=== PATIENT | female | born 1985 | race Caucasian/White ===

== ENCOUNTER 2022-06-02 07:57 | Emergency (ER) | payer OTHER, SELFPAY ==
[2022-06-02 08:07] VITALS: BP 149/97; PULSE 68; RESP 14; TEMP 36.4; O2SAT 99
--- NOTE | 2022-06-02 08:29 | ED_ITS ---
HPI - General Adult General Chief complaint: General Medical Stated complaint: Neck pain/Head pain Time Seen by Provider: 06/02/22 08:15 Source: patient and spanish interpreter Mode of arrival: ambulatory Limitations: language barrier History of Present Illness HPI narrative: Patient is a 36 year old assigned female at with a history of cervical spine arthritis presenting to the emergency department today with neck pain. Patient states that she has had this neck pain for months and it spasms randomly. Patient states that she has only seen her PCP for it and she is on a muscle relaxer but it isn't helping. Patient denies any dizziness, lightheadedness, abdominal pain, nausea, vomiting, fever, chills, blurry vision, double vision, loss of vision, chest pain, difficulty breathing, shortness of breath, back pain, night sweats, pain with urination, increased urinary frequency, increased urinary urgency, blood in her urine or stool, syncope or a near syncopal episode, recent trauma or falls, bowel incontinence, bladder incontinence, bowel retention, bladder retention, or any other complaints at this time. Onset (ago): month(s) Location: neck Radiation: non-radiation Severity: mild Severity scale (1-10): 3 Quality: aching Pain Consistency: intermittent Relieving factors: none Exacerbating factors: none Associated symptoms: denies other symptoms Treatments prior to arrival: none Related Data Allergies Allergy/AdvReac Type Severity Reaction Status Date / Time No Known Allergies Allergy Verified 06/02/22 08:28 Review of Systems 2 Constitutional: Constitutional: Reports no additional constitutional complaints, Denies chills, Denies fever(s) and Denies night sweats Eyes: Eyes: Reports no additional eye complaints, Denies blurry vision, Denies change in vision, Denies diplopia, Denies eye discharge, Denies loss of vision and Denies eye pain ENT: Denies dizziness and Reports neck pain Cardiovascular: Cardiovascular: Reports no additional cardiovascular complaints, Denies chest pain, Denies lightheadedness, Denies Loss of Consciousness and Denies dyspnea Respiratory: Respiratory: Reports no additional respiratory complaints and Denies dyspnea Gastrointestinal: Gastrointestinal: Reports no additional gastrointestinal complaints, Denies abdominal pain, Denies melena, Denies hematochezia, Denies change in bowel habits and Denies change in stool character Genitourinary: Genitourinary: Denies hematuria, Denies urinary frequency, Denies dysuria, Denies urinary incontinence, Denies urinary hesitancy and Denies urinary urgency Musculoskeletal: Musculoskeletal: Reports no additional musculoskeletal complaints, Reports neck pain, Denies numbness and Denies tingling Neurologic: Denies dizziness, Denies loss of vision, Denies numbness and Denies tingling Psychiatric: Psychiatric: Reports no additional psychiatric complaints Endocrine: Endocrine: Reports no additional endocrine complaints Hematologic/Lymphatic: Hematologic/Lymphatic: Reports no additional hematologic/lymphatic complaints Allergic/Immunologic: Allergic/Immunologic: Reports no additional allergic/imm unologic complaints [facility] Past Medical History Attestation statement: The following information was validated with the patient. Source: old records reviewed and nursing notes reviewed Social History Social History Advance Directives: No Advance Directives Information Provided: No Physical Exam ED Vital Signs: Vital Signs - 24 hr 06/02/22 08:07 06/02/22 08:39 Temperature 97.5 F 97.6 F Pulse Rate 68 58 Respiratory Rate 14 20 Blood Pressure 149/97 H 144/86 H Pulse Oximetry 99 99 Oxygen Delivery Method Room Air Room Air BMI result Body Mass Index 21.9 Const General: cooperative, no acute distress, alert and awake Nutritional Appearance: well nourished Orientation/consciousness: patient oriented x3 Limitations: no limitations HENMT Head: Yes normal to inspection and Yes atraumatic Ears: hearing grossly normal bilaterally and external ears normal General nose exam: Normal external nose present, no nasal discharge noted and no epistaxis Face and sinus: Yes normal facial exam, No abrasion and No laceration Mouth: Normal oral and palatal mucosa present, no drooling and no muffled voice Eyes General: appearance normal, both eyes and all related structures Periorbital: periorbital findings normal Eyelids: Yes eyelids normal Conjunctivae: conjunctivae normal Pupils: Equal, round and reactive pupils present EOM: EOMs intact bilaterally Neck Neck: Yes normal visual inspection, Yes full ROM and Yes no lymphadenopathy Chest Chest palpation & inspection: normal inspection of the chest Resp Effort & Inspection: normal respiratory effort and able to speak in complete sentences Auscultation: clear to auscultation bilaterally Cardio Rate: regular rate Rhythm: regular rhythm GI Inspection: Yes normal to inspection General: Yes no CVA tenderness Back/Spine/Pelvis Back: no CVA tenderness Cervical Spine: normal cervical lordosis and cervical ROM normal Thoracic/Lumbar Spine: thoracic and lumbar spine normal to inspection and thoraco-lumbar ROM normal Pelvis: no pain with anterior-posterior compression Neuro General: patient oriented x3 and moves all extremities Cranial nerves: Yes Equal, round and reactive pupils present Cognition (Neuro): normal cognition Motor exam (neuro): 5/5 motor strength present throughout Sensory Exam: Normal double simultaneous stimulation for sensation Coordination: [id number] test normal Extrem General: Yes normal to inspection, Yes full ROM and Yes capillary refill normal Psych Appearance: grossly normal Mental Status: mental status grossly normal Affect: normal affect Attitude: cooperative Thought process: Normal thought process present Thought content: Normal thought content present Insight: Good insight present (Psych) Medications Administered Discontinued Medications Generic Name Dose Route Start Last Admin Trade Name Freq PRN Reason Stop Dose Admin Lorazepam 2 mg 06/02/22 08:28 06/02/22 08:31 Lorazepam 1 Mg Tablet PO 06/02/22 08:29 2 mg ONCE ONE Administration Medical Decision Making Medical Decision Making [facility] Narrative: Patient is a 36 year old assigned female at with a history of chronic cervical spine pain presenting to the emergency department today with neck pain. Patient's physical exam was unremarkable. Patient's blood work was unremarkable. I explained my physical exam findings as well as all test results to the patient. I answered all questions asked by the patient. Patient received PO Ativan which she stated helped her symptoms significantly. I stressed the importance of the patient taking her medication as prescribed. I stressed the importance of the patient following up with her primary care provider and a user support specialist. I stressed the importance of the patient returning to the emergency department immediately if her symptoms were to worsen or if she were to develop any dizziness, shortness of breath, difficulty breathing, chest pain, blurry vision, loss of vision, nausea, vomiting, abdominal pain, fever, chills, back pain, or any other complaints. Patient verbalized agreement and understanding with this treatment plan and discharge. Differential Diagnosis Differential Diagnoses: The differential diagnosis associated with the presentation includes chronic neck pain, muscle spasm Lab Data MDM Lab Attestation statement: I reviewed the patient's lab results. 06/02/22 08:49 06/02/22 08:49 Labs: Lab Results 06/02/22 06/02/22 06/02/22 Range/Units 08:49 08:49 08:49 WBC 7.7 (4.8-10.8) X10*3/uL RBC 3.95 L (4.20-5.50) X10*6/uL Hgb 9.8 L (12.0-16.0) g/dl Hct 31.6 L (37.0-47.0) % MCV 80.0 (80.0-98.0) fL MCH 24.8 L (27.0-33.0) pg MCHC 31.0 (31.0-35.0) g/dl RDW 15.2 (11.0-16.0) % Plt Count 359 (160-400) X10*3/uL MPV 10.4 (9.4-12.3) fL Immature Gran % (Auto) 0.3 (0.0-0.4) % Neut % (Auto) 52.8 (45-73) % Lymph % (Auto) 35.4 (20-40) % Humphreys % (Auto) 8.4 (2-11) % Eos % (Auto) 2.5 (0-4) % Baso % (Auto) 0.6 (0-2) % Lymph # (Auto) 2.7 (1.2-4.9) X10*3/uL Humphreys # (Auto) 0.7 (0.1-1.2) X10*3/uL Eos # (Auto) 0.2 (0.0-0.4) X10*3/uL Baso # (Auto) 0.1 (0.0-0.2) X10*3/uL Abs Immat Gran (auto) 0.02 (0.00-0.03) X10*3/uL Absolute Neuts (auto) 4.1 (2.0-8.3) x10*3/uL Absolute Nucleated RBC 0.000 (0.0-0.012) X10*3/uL Nucleated RBC % (auto) 0.0 (0.0-0.2) /100WBC Sodium 139 (135-145) mmol/L Potassium 3.8 (3.3-5.1) mmol/L Chloride 109 H (96-108) mmol/L Carbon Dioxide 24 (22-29) mmol/L Anion Gap 10 L (12-20) BUN 9 (9-16) mg/dL Creatinine 0.71 (0.5-1.4) mg/dL Estim Creat Clear Calc 104.5 Estimated GFR > 60 Random Glucose 93 (60-115) mg/dL Calcium 8.4 (8.4-10.2) mg/dL Magnesium 1.8 (1.6-2.6) mg/dL Total Bilirubin 0.2 (0.0-1.0) mg/dL AST 14 (5-31) U/L ALT 13 (0-31) U/L Alkaline Phosphatase 47 (39-117) U/L Troponin I High Sens < 3.5 (<3.5-17.0) ng/L Total Protein 5.9 L (6.5-8.0) g/dL Albumin 3.7 (3.5-5.0) g/dL Influenza Type A (PCR) (Negative) Influenza Type B (PCR) (Negative) RSV RNA Qual (PCR) (Negative) SARS-CoV-2 RNA (RT-PCR) (Negative) 06/02/22 Range/Units 08:49 WBC (4.8-10.8) X10*3/uL RBC (4.20-5.50) X10*6/uL Hgb (12.0-16.0) g/dl Hct (37.0-47.0) % MCV (80.0-98.0) fL MCH (27.0-33.0) pg MCHC (31.0-35.0) g/dl RDW (11.0-16.0) % Plt Count (160-400) X10*3/uL MPV (9.4-12.3) fL Immature Gran % (Auto) (0.0-0.4) % Neut % (Auto) (45-73) % Lymph % (Auto) (20-40) % Humphreys % (Auto) (2-11) % Eos % (Auto) (0-4) % Baso % (Auto) (0-2) % Lymph # (Auto) (1.2-4.9) X10*3/uL Humphreys # (Auto) (0.1-1.2) X10*3/uL Eos # (Auto) (0.0-0.4) X10*3/uL Baso # (Auto) (0.0-0.2) X10*3/uL Abs Immat Gran (auto) (0.00-0.03) X10*3/uL Absolute Neuts (auto) (2.0-8.3) x10*3/uL Absolute Nucleated RBC (0.0-0.012) X10*3/uL Nucleated RBC % (auto) (0.0-0.2) /100WBC Sodium (135-145) mmol/L Potassium (3.3-5.1) mmol/L Chloride (96-108) mmol/L Carbon Dioxide (22-29) mmol/L Anion Gap (12-20) BUN (9-16) mg/dL Creatinine (0.5-1.4) mg/dL Estim Creat Clear Calc Estimated GFR Random Glucose (60-115) mg/dL Calcium (8.4-10.2) mg/dL Magnesium (1.6-2.6) mg/dL Total Bilirubin (0.0-1.0) mg/dL AST (5-31) U/L ALT (0-31) U/L Alkaline Phosphatase (39-117) U/L Troponin I High Sens (<3.5-17.0) ng/L Total Protein (6.5-8.0) g/dL Albumin (3.5-5.0) g/dL Influenza Type A (PCR) NEGATIVE (Negative) Influenza Type B (PCR) NEGATIVE (Negative) RSV RNA Qual (PCR) NEGATIVE (Negative) SARS-CoV-2 RNA (RT-PCR) NEGATIVE (Negative) Discharge Plan Discharge Clinical Impression: Neck pain Patient Disposition: Home, Self-Care Instructions: Chronic Neck Pain (DC) Additional Instructions: Follow up with your primary care provider and a user support specialist. Return to the emergency department immediately if your symptoms worsen or if you develop any dizziness, shortness of breath, difficulty breathing, chest pain, blurry vision, loss of vision, nausea, vomiting, abdominal pain, fever, chills, back pain, or any other complaints. Corey un seguimiento con cabezas proveedor de atenci?n primaria y un especialista en columna vertebral. Regrese a la job de emergencias de inmediato si brandt s?ntomas empeoran o si presenta mareos, dificultad para respirar, dolor de pecho, visi?n borrosa, p?rdida de la visi?n, n?useas, v?mitos, dolor abdominal, fiebre, escalofr?os, dolor de espalda o cualquier otras quejas. Referrals: [facility] [Provider Group] (Call to establish and follow up with a primary care provider. If you already have a primary care provider, please follow up with them. Llame para establecer y hacer un seguimiento con un proveedor de atenci?n primaria. Si ya tiene un proveedor de atenci?n primaria, corey un seguimiento con ?l.) [facility] [Provider Group] (Call to establish and follow up with a primary care provider. If you already have a primary care provider, please follow up with them. Llame para establecer y hacer un seguimiento con un proveedor de atenci?n primaria. Si ya tiene un proveedor de atenci?n primaria, corey un seguimiento con ?l.) [facility] [Provider Group] (Call to establish and follow up with a primary care provider. If you already have a primary care provider, please follow up with them. Llame para establecer y hacer un seguimiento con un proveedor de atenci?n primaria. Si ya tiene un proveedor de atenci?n primaria, corey un seguimiento con ?l.) [facility] [Provider Group] (Call to establish and follow up with a user support specialist. Llame para establecer y hacer un seguimiento con woody especialista en columna vertebral.) Stand Alone Forms: Work/School Release Interventions: ED Discharge Assessment Last Done: 06/02/22 10:35 Discharge Date/Time: 06/02/22 10:36 Print Language: Malay
[2022-06-02] MEDS: LORazepam 1 MG TABLET 2 MG PO (08:31)
[2022-06-02 08:33] VITALS: BMI 21.9
--- NOTE | 2022-06-02 08:37 | PC.NURSE ---
assumed care of patient, 36 y/o F pw back pain unrelieved by home rx. pt is aox3, calm and cooperative, VSS. pt given 2mg PO ativan for relief, plan for labs and d/c home with spine referral
[2022-06-02 08:39] VITALS: BP 144/86; PULSE 58; RESP 20; TEMP 36.4; O2SAT 99
--- OUTSIDE RECORDS SUMMARY | 2022-06-02 08:40 | XMS_ITS | Continuity of Care Document ---
:1985 Author Organization [facility] Address Unavailable , Care Team Providers Name Role Phone Not on Staff, PCP Primary Care Physician Unavailable Encounter [facility] Date(s): 08/25/21 - 09/01/21 [facility] Attending Physician: Anirudh JONES, [address] Referring Physician: Rosalinda Arnold Allergies, Adverse Reactions, Alerts Substance Reaction Severity Status penicillins Active Medications cyclobenzaprine 10 mg oral tablet 10 mg, 1, tablet, By Mouth, 3 times a day, PRN, # 30 tablet, Refills 0, Maintenance, for spasm, 08/25/21 13:20:00 EDT, Partial fill upon patient request if the prescription is for a schedule II opioid drug. Start Date: 08/25/21 Status: Orderedmeloxicam 7.5 mg oral tablet 1 tablet = 7.5 mg, By Mouth, Daily, # 30 tablet, 2 Refills, Maintenance, 08/25/21 14:15:00 EDT, [id number], Partial fill upon patient request if the prescription is for a schedule II opioid drug., 163, cm, 08/25/21 13:16:00 EDT, Height Start Date: 08/25/21 Stop Date: 11/23/21 Status: Ordered Problem List Condition Effective Dates Status Health Status Informant Obese class I(Confirmed) Active Vital Signs Most recent to oldest [Reference Range]: 1 Height 163 cm (08/25/21 1:16 PM) Weight 84.9 kg (08/25/21 1:16 PM) Pulse Rate [55-90 bpm] 71 bpm (08/25/21 1:16 PM) Body Mass Index [18.5-24.99] 31.95 *>HHI* (08/25/21 1:16 PM) Blood Pressure [90-138/55-84 mm Hg] 134/91 mm Hg (08/25/21 1:16 PM) Blood pressure sites Arm, right (08/25/21 1:16 PM) Social History Social History Type Response Sex Female
--- OUTSIDE RECORDS SUMMARY | 2022-06-02 08:40 | XMS_ITS | Continuity of Care Document ---
:1985 Author Organization [facility] Address Unavailable , Care Team Providers Name Role Phone Not on Staff, PCP Primary Care Physician Unavailable Encounter [facility] Date(s): 12/08/21 - 12/15/21 [facility] Attending Physician: Anirudh JONES, [address] Referring Physician: Not on Staff, Referring MD Allergies, Adverse Reactions, Alerts Substance Reaction Severity Status penicillins Active Medications cyclobenzaprine 10 mg oral tablet 10 mg, 1, tablet, By Mouth, 3 times a day, PRN, # 30 tablet, Refills 0, Maintenance, for spasm, 08/25/21 13:20:00 EDT, Partial fill upon patient request if the prescription is for a schedule II opioid drug. Start Date: 08/25/21 Status: Orderedmeloxicam 7.5 mg oral tablet 2 tablet = 15 mg, By Mouth, Daily, # 60 tablet, 2 Refills, Maintenance, 08/25/21 14:15:00 EDT, [id number], Partial fill upon patient request if the prescription is for a schedule II opioid drug., 163, cm, 08/25/21 13:16:00 EDT, Height Start Date: 08/25/21 Stop Date: 11/23/21 Status: Ordered Problem List Condition Effective Dates Status Health Status Informant Obese class I(Confirmed) Active Vital Signs Most recent to oldest [Reference Range]: 1 Height 163 cm (12/08/21 12:51 PM) Weight 86.4 kg (12/08/21 12:51 PM) Oxygen Saturation [94-100 %] 98 % (12/08/21 12:51 PM) Pulse Rate [55-90 bpm] 89 bpm (12/08/21 12:51 PM) Body Mass Index [18.5-24.99] 32.52 *>HHI* (12/08/21 12:51 PM) Blood Pressure [90-138/55-84 mm Hg] 116/86 mm Hg (12/08/21 12:51 PM) Mode of Delivery (Oxygen) Room air (12/08/21 12:51 PM) Blood pressure sites Arm, left (12/08/21 12:51 PM) Dry Weight 86.4 kg (12/08/21 12:51 PM) Social History Social History Type Response Sex Female
--- OUTSIDE RECORDS SUMMARY | 2022-06-02 08:41 | XMS_ITS | Continuity of Care Document ---
:1985 Author Organization [facility] Address Unavailable , Care Team Providers Name Role Phone Not on Staff, PCP Primary Care Physician Unavailable Encounter [facility] [place] Date(s): 12/08/21 - 01/07/22 [facility] Attending Physician: Eva Rivera Admitting Physician: Eva Rivera Referring Physician: Eva Rivera Allergies, Adverse Reactions, Alerts Substance Reaction Severity [...] tablet, 2 Refills, Maintenance, 08/25/21 14:15:00 EDT, [id number], Partial fill upon patient request if the prescription is for a schedule II opioid drug., 163, cm, 08/25/21 13:16:00 EDT, Height Start Date: 08/25/21 Stop Date: 11/23/21 Status: Ordered Problem List Condition Effective Dates Status Health Status Informant Obese class I(Confirmed) Active Social History Social History Type Response Sex Female
[2022-06-02 08:59] LABS: MANUAL DIFF FLAG NO
[2022-06-02 09:08] LABS: Basophils Absolute Auto 0.1 X10*3/uL (0.0-0.2); Basophils Percent Auto 0.6 % (0-2); Eosinophils Absolute Auto 0.2 X10*3/uL (0.0-0.4); Eosinophils Percent Auto 2.5 % (0-4); Hematocrit 31.6 % (37.0-47.0); Hemoglobin 9.8 g/dl (12.0-16.0); Imm Gran Abs Auto 0.02 X10*3/uL (0.00-0.03); Imm Gran Pct Auto 0.3 % (0.0-0.4); Lymphocytes Absolute Auto 2.7 X10*3/uL (1.2-4.9); Lymphocytes Percent Auto 35.4 % (20-40); Mean Corpuscular Hemoglobin 24.8 pg (27.0-33.0); Mean Platelet Volume 10.4 fL (9.4-12.3); Monocytes Absolute Auto 0.7 X10*3/uL (0.1-1.2); Monocytes Percent Auto 8.4 % (2-11); Neutrophils Absolute Auto 4.1 x10*3/uL (2.0-8.3); Neutrophils Percent Auto 52.8 % (45-73); Platelet Count 359 X10*3/uL (160-400); Red Blood Count 3.95 X10*6/uL (4.20-5.50); Red Cell Distribution Width 15.2 % (11.0-16.0); White Blood Count 7.7 X10*3/uL (4.8-10.8)
[2022-06-02 09:15] LABS: Alanine Aminotransferase 13 U/L (0-31); Albumin Level 3.7 g/dL (3.5-5.0); Alkaline Phosphatase 47 U/L (39-117); Anion Gap 10 (12-20); Aspartate Amino Transferase 14 U/L (5-31); Bilirubin Total 0.2 mg/dL (0.0-1.0); Blood Urea Nitrogen 9 mg/dL (9-16); Calcium 8.4 mg/dL (8.4-10.2); Carbon Dioxide 24 mmol/L (22-29); Chloride 109 mmol/L (96-108); Creatinine Clr Calc Pharmacy 104.5; Estimated Glomerular Filt Rate > 60; Glucose Random 93 mg/dL (60-115); Magnesium 1.8 mg/dL (1.6-2.6); Potassium 3.8 mmol/L (3.3-5.1); Sodium 139 mmol/L (135-145); Total Protein 5.9 g/dL (6.5-8.0)
[2022-06-02 09:23] LABS: Troponin-I High Sensitivity < 3.5 ng/L (<3.5-17.0)
[2022-06-02 09:42] LABS: Influenza A PCR NEGATIVE (Negative); Influenza B PCR NEGATIVE (Negative); Resp Syncy Virus RNA Qual PCR NEGATIVE (Negative); SARS COV2 PCR INHOUSE NEGATIVE (Negative)
== END 2022-06-02 10:36 | disposition home or self-care (01) ==
PROVIDERS: Physician Assistant Medical; Emergency Provider Student in an Organized Health Care Education/Training Program
DX: M54.2 Cervicalgia (principal); Z20.822 Contact with and (suspected) exposure to COVID-19; Z20.828 Contact with and (suspected) exposure to other viral communicable diseases
CPT/HCPCS: 0241U; 80053; 83735; 84484; 85025; 99283; 99284

== ENCOUNTER 2022-06-05 20:19 | Emergency (ER) | payer OTHER, SELFPAY ==
[2022-06-05 20:33] VITALS: BP 146/86; PULSE 66; RESP 18; TEMP 36.4; O2SAT 100; BMI 31.7
--- NOTE | 2022-06-05 20:39 | ED_ITS ---
HPI - Headache General Chief Complaint: General Medical Stated Complaint: neck pain, vommiting Time Seen by Provider: 06/05/22 22:30 Related Data Previous Rx's Medication Instructions Recorded cyclobenzaprine 10 mg tablet 10 mg PO TID PRN pain #14 tabs 06/06/22 ibuprofen 400 mg tablet 400 mg PO Q6H PRN pain #20 tabs 06/06/22 Allergies Allergy/AdvReac Type Severity Reaction Status Date / Time Penicillins [PCN] AdvReac Anaphylaxis Verified 06/05/22 20:42 [facility] Social History Social History Smoked in Last 30 Days: No Use of substances other than those prescribed or required for medical reasons: No Advance Directives: No Advance Directives Information Provided: No Patient : No Physical Exam Vital Signs: Vital Signs: Last Vital Signs Temp 98.5 F 06/06/22 01:51 Pulse 77 06/06/22 01:51 Resp 20 06/06/22 01:51 BP 147/95 H 06/06/22 01:51 Pulse Ox 100 06/06/22 01:51 O2 Del Method 06/06/22 01:51 BMI result Body Mass Index 31.7 Course Course Course Narrative: This is a rapid medical exam. Defer additional HPI, ROS, PE to primary provider. 36 yo female with history of chronic cervical spine pain, migraine, here with acute on chronic neck pain and spasms with headache and vomiting. Patient seen here on June 02 for chronic neck pain. Vital signs stable Medications Administered Discontinued Medications Generic Name Dose Route Start Last Admin Trade Name Freq PRN Reason Stop Dose Admin Diphenhydramine HCl 25 mg 06/06/22 01:12 06/06/22 01:31 Diphenhydramine Hcl 50 Mg/Ml Vial IVPUSH 06/06/22 01:13 25 mg ONCE ONE Administration Ketorolac Tromethamine 30 mg 06/06/22 01:12 06/06/22 01:31 Ketorolac Tromethamine 30 Mg/Ml Vial IVPUSH 06/06/22 01:13 30 mg ONCE ONE Administration Lorazepam 0.5 mg 06/06/22 01:12 06/06/22 01:31 Lorazepam 2 Mg/Ml Vial IVPUSH 06/06/22 01:13 0.5 mg ONCE ONE Administration Metoclopramide HCl 10 mg 06/06/22 01:12 06/06/22 01:31 Metoclopramide Hcl 10 Mg/2 Ml Vial IVPUSH 06/06/22 01:13 10 mg ONCE ONE Administration Medical Decision Making Lab Data 06/06/22 02:12 06/06/22 02:12 Labs: Lab Results 06/06/22 06/06/22 06/06/22 Range/Units 02:12 02:12 02:12 WBC 9.1 (4.8-10.8) X10*3/uL RBC 4.33 (4.20-5.50) X10*6/uL Hgb 10.6 L (12.0-16.0) g/dl Hct 34.2 L (37.0-47.0) % MCV 79.0 L (80.0-98.0) fL MCH 24.5 L (27.0-33.0) pg MCHC 31.0 (31.0-35.0) g/dl RDW 15.0 (11.0-16.0) % Plt Count 396 (160-400) X10*3/uL MPV 10.1 (9.4-12.3) fL Immature Gran % (Auto) 0.1 (0.0-0.4) % Neut % (Auto) 49.6 (45-73) % Lymph % (Auto) 39.5 (20-40) % Guthrie % (Auto) 7.7 (2-11) % Eos % (Auto) 2.3 (0-4) % Baso % (Auto) 0.8 (0-2) % Lymph # (Auto) 3.6 (1.2-4.9) X10*3/uL Guthrie # (Auto) 0.7 (0.1-1.2) X10*3/uL Eos # (Auto) 0.2 (0.0-0.4) X10*3/uL Baso # (Auto) 0.1 (0.0-0.2) X10*3/uL Abs Immat Gran (auto) 0.01 (0.00-0.03) X10*3/uL Absolute Neuts (auto) 4.5 (2.0-8.3) x10*3/uL Absolute Nucleated RBC 0.000 (0.0-0.012) X10*3/uL Nucleated RBC % (auto) 0.0 (0.0-0.2) /100WBC Sodium 141 (135-145) mmol/L Potassium 3.6 (3.3-5.1) mmol/L Chloride 109 H (96-108) mmol/L Carbon Dioxide 22 (22-29) mmol/L Anion Gap 14 (12-20) BUN 10 (9-16) mg/dL Creatinine 0.76 (0.5-1.4) mg/dL Estim Creat Clear Calc 105.1 Estimated GFR > 60 Random Glucose 87 (60-115) mg/dL Calcium 8.6 (8.4-10.2) mg/dL Beta HCG, Quant < 2 mIU/mL Discharge Plan Discharge Clinical Impression: Migraine, Torticollis Patient Disposition: Home, Self-Care Instructions: Migraine Headache (ED), Spasmodic Torticollis (ED) Prescriptions: New cyclobenzaprine 10 mg tablet 10 mg PO TID PRN (Reason: pain) Qty: 14 0RF ibuprofen 400 mg tablet 400 mg PO Q6H PRN (Reason: pain) Qty: 20 0RF Referrals: Physician,None [Primary Care Provider] - Interventions: ED Discharge Assessment Last Done: 06/06/22 04:06 Discharge Date/Time: 06/06/22 04:06 Print Language: Palauan
[2022-06-05 22:56] VITALS: BP 133/81; PULSE 56; RESP 20; TEMP 36.8; O2SAT 96
--- NOTE | 2022-06-05 23:00 | PC.NURSE ---
Pt's V/S are stable, pt has pain 10/10 on her posterior neck pain stabbing, the necck feels rigid and not able to laterally flex the neck without feeling pain.
--- NOTE | 2022-06-06 01:13 | ED.GENADULT ---
HPI - General Adult General Chief complaint: General Medical Stated complaint: neck pain, vommiting Time Seen by Provider: 06/05/22 22:30 History of Present Illness HPI narrative: Patient is a 36-year-old female presents today with having neck pain headaches. Patient had a history of migraine headaches before. Complaining of pain to both eyes. Complaining of pain to noise and to light. Also complaining of neck pain that is similar to previous bouts of muscle spasms in the past. No fever no chills. No nuchal rigidity. Patient from home. No focal weakness. History of similar symptoms in the past. Symptoms been ongoing for about 4 days. Related Data Previous Rx's Medication Instructions Recorded cyclobenzaprine 10 mg tablet 10 mg PO TID PRN pain #14 tabs 06/06/22 ibuprofen 400 mg tablet 400 mg PO Q6H PRN pain #20 tabs 06/06/22 Allergies Allergy/AdvReac Type Severity Reaction Status Date / Time Penicillins [PCN] AdvReac Anaphylaxis Verified 06/05/22 20:42 Review of Systems Review of Systems: Positive neck pain Positive headache Yes all other systems are reviewed and are negative [facility] Past Medical History Attestation statement: The following information was validated with the patient. Social History Social History Smoked in Last 30 Days: No Use of substances other than those prescribed or required for medical reasons: No Advance Directives: No Advance Directives Information Provided: No Patient : No Physical Exam ED Vital Signs: Vital Signs - 24 hr 06/05/22 20:33 06/05/22 22:56 06/06/22 01:51 Temperature 97.6 F 98.2 F 98.5 F Pulse Rate 66 56 77 Respiratory Rate 18 20 20 Blood Pressure 146/86 H 133/81 147/95 H Pulse Oximetry 100 96 100 Oxygen Delivery Method Room Air Room Air Room Air BMI result Body Mass Index 31.7 Appearance: Alert. Oriented X3. No acute distress. Eyes: Pupils equal, round and reactive to light. ENT: Pharynx normal. Neck: Normal inspection. Neck supple. No lymph nodes noted. No crepitus CVS: Normal heart rate and rhythm. Pulses normal. Normal S1 and S2 Respiratory: No respiratory distress. Breath sounds normal. No Wheezing. No rales Abdomen: Soft and nontender. No rigidity. No distention. good BS x4 Skin: Skin warm and dry. Normal skin color. Normal skin turgor. Extremities: No lower extremity edema. Neurovascular intact to all extremities. No Lacerations. No Rash Neuro: Oriented X 3. No motor deficit. No sensory deficit. Moving all extermities. No slurred speech. Cranial nerve 2-12 intact. Rapid alternating movement intact Medications Administered Discontinued Medications Generic Name Dose Route Start Last Admin Trade Name [place] PRN Reason Stop Dose Admin Diphenhydramine HCl 25 mg 06/06/22 01:12 06/06/22 01:31 Diphenhydramine Hcl 50 Mg/Ml Vial IVPUSH 06/06/22 01:13 25 mg ONCE ONE Administration Ketorolac Tromethamine 30 mg 06/06/22 01:12 06/06/22 01:31 Ketorolac Tromethamine 30 Mg/Ml Vial IVPUSH 06/06/22 01:13 30 mg ONCE ONE Administration Lorazepam 0.5 mg 06/06/22 01:12 06/06/22 01:31 Lorazepam 2 Mg/Ml Vial IVPUSH 06/06/22 01:13 0.5 mg ONCE ONE Administration Metoclopramide HCl 10 mg 06/06/22 01:12 06/06/22 01:31 Metoclopramide Hcl 10 Mg/2 Ml Vial IVPUSH 06/06/22 01:13 10 mg ONCE ONE Administration Medical Decision Making Differential Diagnosis Patient's symptoms consistent with torticollis and migraine headache. Will give migraine treatment. History of similar headaches in the past. No fever no chills. Symptoms ongoing for 4 days. Not consistent with meningitis. Patient's symptom improved dramatically with migraine treatments. Muscle relaxants. In no distress. No meningeal sign well-appearing neurologically intact. Will discharge patient home. Electrolytes are normal test is negative. Lab Data MDM Lab Attestation statement: I reviewed the patient's lab results. 06/06/22 02:12 06/06/22 02:12 Labs: Lab Results 06/06/22 06/06/22 06/06/22 Range/Units 02:12 02:12 02:12 WBC 9.1 (4.8-10.8) X10*3/uL RBC 4.33 (4.20-5.50) X10*6/uL Hgb 10.6 L (12.0-16.0) g/dl Hct 34.2 L (37.0-47.0) % MCV 79.0 L (80.0-98.0) fL MCH 24.5 L (27.0-33.0) pg MCHC 31.0 (31.0-35.0) g/dl RDW 15.0 (11.0-16.0) % Plt Count 396 (160-400) X10*3/uL MPV 10.1 (9.4-12.3) fL Immature Gran % (Auto) 0.1 (0.0-0.4) % Neut % (Auto) 49.6 (45-73) % Lymph % (Auto) 39.5 (20-40) % [place] % (Auto) 7.7 (2-11) % Eos % (Auto) 2.3 (0-4) % Baso % (Auto) 0.8 (0-2) % Lymph # (Auto) 3.6 (1.2-4.9) X10*3/uL [place] # (Auto) 0.7 (0.1-1.2) X10*3/uL Eos # (Auto) 0.2 (0.0-0.4) X10*3/uL Baso # (Auto) 0.1 (0.0-0.2) X10*3/uL Abs Immat Gran (auto) 0.01 (0.00-0.03) X10*3/uL Absolute Neuts (auto) 4.5 (2.0-8.3) x10*3/uL Absolute Nucleated RBC 0.000 (0.0-0.012) X10*3/uL Nucleated RBC % (auto) 0.0 (0.0-0.2) /100WBC Sodium 141 (135-145) mmol/L Potassium 3.6 (3.3-5.1) mmol/L Chloride 109 H (96-108) mmol/L Carbon Dioxide 22 (22-29) mmol/L Anion Gap 14 (12-20) BUN 10 (9-16) mg/dL Creatinine 0.76 (0.5-1.4) mg/dL Estim Creat Clear Calc 105.1 Estimated GFR > 60 Random Glucose 87 (60-115) mg/dL Calcium 8.6 (8.4-10.2) mg/dL Beta HCG, Quant < 2 mIU/mL Prescription Management I considered prescription management with: Pain Medication and Other Muscle relaxant Discharge Plan Discharge Clinical Impression: Migraine, Torticollis Patient Disposition: Home, Self-Care Instructions: Migraine Headache (ED), Spasmodic Torticollis (ED) Prescriptions: New cyclobenzaprine 10 mg tablet 10 mg PO TID PRN (Reason: pain) Qty: 14 0RF ibuprofen 400 mg tablet 400 mg PO Q6H PRN (Reason: pain) Qty: 20 0RF Referrals: Physician,None [Primary Care Provider] - Print Language: Montenegrin
[2022-06-06] MEDS: Ketorolac Tromethamine 30 MG/ML VIAL IVPUSH (01:31)
[2022-06-06] MEDS: diphenhydrAMINE HCL 50 MG/ML VIAL 25 MG IVPUSH (01:31)
[2022-06-06] MEDS: Metoclopramide HCl 10 MG/2 ML VIAL IVPUSH (01:31)
[2022-06-06] MEDS: LORazepam 2 MG/ML VIAL 0.5 MG IVPUSH (01:31)
[2022-06-06 01:51] VITALS: BP 147/95; PULSE 77; RESP 20; TEMP 36.9; O2SAT 100
[2022-06-06 02:19] LABS: MANUAL DIFF FLAG NO
[2022-06-06 02:23] LABS: Basophils Absolute Auto 0.1 X10*3/uL (0.0-0.2); Basophils Percent Auto 0.8 % (0-2); Eosinophils Absolute Auto 0.2 X10*3/uL (0.0-0.4); Eosinophils Percent Auto 2.3 % (0-4); Hematocrit 34.2 % (37.0-47.0); Hemoglobin 10.6 g/dl (12.0-16.0); Imm Gran Abs Auto 0.01 X10*3/uL (0.00-0.03); Imm Gran Pct Auto 0.1 % (0.0-0.4); Lymphocytes Absolute Auto 3.6 X10*3/uL (1.2-4.9); Lymphocytes Percent Auto 39.5 % (20-40); Mean Corpuscular Hemoglobin 24.5 pg (27.0-33.0); Mean Platelet Volume 10.1 fL (9.4-12.3); Monocytes Absolute Auto 0.7 X10*3/uL (0.1-1.2); Monocytes Percent Auto 7.7 % (2-11); Neutrophils Absolute Auto 4.5 x10*3/uL (2.0-8.3); Neutrophils Percent Auto 49.6 % (45-73); Platelet Count 396 X10*3/uL (160-400); Red Blood Count 4.33 X10*6/uL (4.20-5.50); White Blood Count 9.1 X10*3/uL (4.8-10.8)
[2022-06-06 02:43] LABS: Anion Gap 14 (12-20); Blood Urea Nitrogen 10 mg/dL (9-16); Calcium 8.6 mg/dL (8.4-10.2); Carbon Dioxide 22 mmol/L (22-29); Chloride 109 mmol/L (96-108); Creatinine Clr Calc Pharmacy 105.1; Estimated Glomerular Filt Rate > 60; Glucose Random 87 mg/dL (60-115); Potassium 3.6 mmol/L (3.3-5.1); Sodium 141 mmol/L (135-145)
[2022-06-06 03:00] LABS: HCG Quantitative < 2 mIU/mL
== END 2022-06-06 04:06 | disposition home or self-care (01) ==
PROVIDERS: Emergency Provider Emergency Medicine Emergency Medical Services
DX: G43.909 Migraine, unspecified, not intractable, without status migrainosus (principal); M54.2 Cervicalgia; M43.6 Torticollis; Z79.899 Other long term (current) drug therapy
CPT/HCPCS: 36415; 80048; 84702; 85025; 96374; 96375; 99284; J1200; J1885; J2060; J2765

== ENCOUNTER 2022-10-29 21:15 | Emergency (ER) | payer MEDICAID, SELFPAY ==
--- NOTE | ~2022-10-29 | XR_ITS ---
EXAMINATION: XR CHEST CLINICAL INFORMATION: Chest pain COMPARISON: None available. TECHNIQUE: 2 views of the chest were obtained. FINDINGS: No significant abnormality is noted involving the heart, lungs, mediastinum, bony thorax or soft tissues. XR/XR chest 2V IMPRESSION: Unremarkable examination.
--- NOTE | 2022-10-29 21:21 | ECG_ITS ---
Test Reason : Chest Pain Blood Pressure : / mmHG Vent. Rate : 076 BPM Atrial Rate : 076 BPM P-R Int : 158 ms QRS Dur : 072 ms QT Int : 400 ms P-R-T Axes : 021 -13 001 degrees QTc Int : 450 ms Normal sinus rhythm Minimal voltage criteria for LVH, may be normal variant ( R in aVL ) Borderline ECG No previous ECGs available Referred By: Generic ED Physician Electronically Signed By:Darius Hughes
[2022-10-29 21:37] LABS: MANUAL DIFF FLAG NO
[2022-10-29 21:40] LABS: Basophils Absolute Auto 0.1 X10*3/uL (0.0-0.2); Basophils Percent Auto 0.7 % (0-2); Eosinophils Absolute Auto 0.2 X10*3/uL (0.0-0.4); Eosinophils Percent Auto 1.6 % (0-4); Hematocrit 32.3 % (37.0-47.0); Hemoglobin 9.6 g/dl (12.0-16.0); Imm Gran Abs Auto 0.03 X10*3/uL (0.00-0.03); Imm Gran Pct Auto 0.3 % (0.0-0.4); Lymphocytes Absolute Auto 2.7 X10*3/uL (1.2-4.9); Lymphocytes Percent Auto 25.3 % (20-40); Mean Corpuscular HGB Conc 29.7 g/dl (31.0-35.0); Mean Corpuscular Volume 73.9 fL (80.0-98.0); Mean Platelet Volume 9.4 fL (9.4-12.3); Monocytes Absolute Auto 1.1 X10*3/uL (0.1-1.2); Monocytes Percent Auto 10.4 % (2-11); Neutrophils Absolute Auto 6.6 x10*3/uL (2.0-8.3); Neutrophils Percent Auto 61.7 % (45-73); Platelet Count 385 X10*3/uL (160-400); Red Blood Count 4.37 X10*6/uL (4.20-5.50); Red Cell Distribution Width 18.3 % (11.0-16.0); White Blood Count 10.7 X10*3/uL (4.8-10.8)
[2022-10-29 21:52] LABS: Anion Gap 11 (12-20); Blood Urea Nitrogen 10 mg/dL (9-16); Calcium 8.8 mg/dL (8.4-10.2); Carbon Dioxide 26 mmol/L (22-29); Chloride 108 mmol/L (96-108); Estimated Glomerular Filt Rate > 60; Glucose Random 95 mg/dL (60-115); Potassium 3.7 mmol/L (3.3-5.1); Sodium 141 mmol/L (135-145)
[2022-10-29 21:56] VITALS: BP 172/108; PULSE 70; RESP 18; TEMP 36; O2SAT 99; BMI 33.7
[2022-10-29 22:03] LABS: Troponin-I High Sensitivity < 2.7 ng/L (<3.5-17.0)
--- NOTE | 2022-10-29 23:27 | PC.NURSE ---
Pt a&o, no sob or chest pain, pt denies any pain at this time, no n/v, pt changed into hospital attire and placed on bed side monitor. Will continue to monitor.
[2022-10-29 23:28] VITALS: BP 152/88; PULSE 67; RESP 16; TEMP 36.9; O2SAT 98
--- NOTE | 2022-10-29 23:30 | MHC.EDTECH ---
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
--- NOTE | 2022-10-30 00:01 | ED_ITS ---
HPI - Chest Pain General Chief Complaint: Neck Pain/Injury Stated Complaint: Heart attack? Chest pain/left arm discomfort Time Seen by Provider: 10/29/22 23:49 Source: patient Mode of arrival: ambulatory Limitations: no limitations History of Present Illness HPI narrative: Patient history of anxiety under lot of stress complaining of pain in the left side of the neck radiating to the left arm for last few days got worse today patient does have similar problems with upper back spasm for last few months specially when she is under stress and not able to sleep Related Data Previous Rx's Medication Instructions Recorded cyclobenzaprine 10 mg tablet 10 mg PO TID PRN pain #14 tabs 06/06/22 ibuprofen 400 mg tablet 400 mg PO Q6H PRN pain #20 tabs 06/06/22 cyclobenzaprine 10 mg tablet 10 mg PO Q8H #20 tabs 10/30/22 lorazepam 1 mg tablet (Ativan) 1 mg PO BEDTIME PRN sleep #14 tabs 10/30/22 tramadol 50 mg tablet 50 mg PO Q6H PRN pain #20 tabs 10/30/22 Allergies Allergy/AdvReac Type Severity Reaction Status Date / Time Penicillins [PCN] AdvReac Anaphylaxis Verified 06/05/22 20:42 Review of Systems Review of Systems: Yes all other systems are reviewed and are negative [facility] Social History Social History Smoked in Last 30 Days: No Use of substances other than those prescribed or required for medical reasons: No Advance Directives: No Advance Directives Information Provided: Yes Physical Exam Vital Signs: Vital Signs: Last Vital Signs Temp 98.4 F 10/29/22 23:28 Pulse 67 10/29/22 23:28 Resp 16 10/29/22 23:28 BP 152/88 H 10/29/22 23:28 Pulse Ox 98 10/29/22 23:28 O2 Del Method Room Air 10/29/22 23:28 BMI result Body Mass Index 33.7 Appearance: Alert. Oriented X3. No acute distress. Eyes: PERRLA, No Nystagmus ENT: Pharynx normal. Oral Mucosa moist Neck: Normal inspection. Neck supple. CVS: Normal heart rate and rhythm. Pulses normal. Respiratory: No respiratory distress. Equal air entry bilateral, no wheezing/rales/rhonchi Abdomen: Soft and nontender. Bowel sounds are present, no mass palpable, no CVA tenderness Skin: Skin warm and dry. Normal skin color. Normal skin turgor. Extremities: No lower extremity edema. No calf tenderness upper back ; diffuse muscle spasm of trapezius area bilateral Neuro: Oriented X 3. No motor deficit. No sensory deficit.No cerebellar signs , cranial nerves II-XII intact Medical Decision Making Medical Decision Making [facility] Narrative: Patient's symptoms likely from fibromyalgia with soreness and upper back cardiac workup negative discharge on tramadol and Ativan Flexeril. Lab Data [facility] Lab Attestation statement: I reviewed the patient's lab results. 10/29/22 21:30 10/29/22 21:30 Labs: Lab Results 10/29/22 10/29/22 10/29/22 Range/Units 21:30 21:30 21:30 WBC 10.7 (4.8-10.8) X10*3/uL RBC 4.37 (4.20-5.50) X10*6/uL Hgb 9.6 L (12.0-16.0) g/dl Hct 32.3 L (37.0-47.0) % MCV 73.9 L (80.0-98.0) fL MCH 22.0 L (27.0-33.0) pg MCHC 29.7 L (31.0-35.0) g/dl RDW 18.3 H (11.0-16.0) % Plt Count 385 (160-400) X10*3/uL MPV 9.4 (9.4-12.3) fL Immature Gran % (Auto) 0.3 (0.0-0.4) % Neut % (Auto) 61.7 (45-73) % Lymph % (Auto) 25.3 (20-40) % [place] % (Auto) 10.4 (2-11) % Eos % (Auto) 1.6 (0-4) % Baso % (Auto) 0.7 (0-2) % Lymph # (Auto) 2.7 (1.2-4.9) X10*3/uL [place] # (Auto) 1.1 (0.1-1.2) X10*3/uL Eos # (Auto) 0.2 (0.0-0.4) X10*3/uL Baso # (Auto) 0.1 (0.0-0.2) X10*3/uL Abs Immat Gran (auto) 0.03 (0.00-0.03) X10*3/uL Absolute Neuts (auto) 6.6 (2.0-8.3) x10*3/uL Absolute Nucleated RBC 0.000 (0.0-0.012) X10*3/uL Nucleated RBC % (auto) 0.0 (0.0-0.2) /100WBC Sodium 141 (135-145) mmol/L Potassium 3.7 (3.3-5.1) mmol/L Chloride 108 (96-108) mmol/L Carbon Dioxide 26 (22-29) mmol/L Anion Gap 11 L (12-20) BUN 10 (9-16) mg/dL Creatinine 0.72 (0.5-1.4) mg/dL Estim Creat Clear Calc TNP Estimated GFR > 60 Random Glucose 95 (60-115) mg/dL Calcium 8.8 (8.4-10.2) mg/dL Troponin I High Sens < 2.7 (<3.5-17.0) ng/L Discharge Plan Discharge Clinical Impression: Fibromyalgia, Anxiety Patient Disposition: Home, Self-Care Instructions: Fibromyalgia (ED), Anxiety (ED) Additional Instructions: Take medication as prescribed for muscle relaxation and anxiety Follow up with your PCP Prescriptions: New cyclobenzaprine 10 mg tablet 10 mg PO Q8H Qty: 20 0RF tramadol 50 mg tablet 50 mg PO Q6H PRN (Reason: pain) Qty: 20 0RF lorazepam [Ativan] 1 mg tablet 1 mg PO BEDTIME PRN (Reason: sleep) Qty: 14 0RF No Action cyclobenzaprine 10 mg tablet 10 mg PO TID PRN (Reason: pain) Qty: 14 0RF ibuprofen 400 mg tablet 400 mg PO Q6H PRN (Reason: pain) Qty: 20 0RF
[2022-10-30] MEDS: traMADoL HCL 50 MG TABLET PO (01:06)
[2022-10-30] MEDS: Cyclobenzaprine HCl 10 MG TABLET PO (01:07)
--- NOTE | 2022-10-30 01:13 | PC.NURSE ---
Pt a&o, no sob or chest pain, Medicated at discharge, Reviewed discharge instruction with pt, pt verbalized understanding.
--- NOTE | 2022-10-30 01:14 | PC.NURSE ---
No sign of distress.
== END 2022-10-30 01:15 | disposition home or self-care (01) ==
PROVIDERS: Emergency Provider Internal Medicine
DX: M79.7 Fibromyalgia (principal); F41.9 Anxiety disorder, unspecified
CPT/HCPCS: 36415; 71046; 80048; 84484; 85025; 93005; 99284; 99285

== ENCOUNTER 2023-04-27 08:23 | Emergency (ER) | payer MEDICAID, SELFPAY ==
[2023-04-27 08:40] VITALS: BP 140/87; PULSE 63; RESP 16; TEMP 36.3; O2SAT 98; BMI 33.5
[2023-04-27 11:27] VITALS: BP 143/89; PULSE 58; RESP 16; O2SAT 99
--- NOTE | 2023-04-27 12:19 | ED_ITS ---
HPI - Neck Pain/Injury General Chief Complaint: Neck Pain/Injury Stated Complaint: Neck pain Time Seen by Provider: 04/27/23 10:45 Source: patient and RN notes reviewed Mode of arrival: ambulatory Limitations: no limitations History of Present Illness HPI Narrative: This is a 37-year-old female presenting to the emergency department complaints of neck spasms for the last 2 days. Patient reports that she has a history of muscle spasms in the past however has not had spasms like this in her neck. She denies any recent trauma or injury. No recent car accidents or falls. She states that she woke up 2 days ago and had these symptoms. No headaches, fevers, chills, chest pain, shortness breath, abdominal pain, nausea, vomiting or diarrhea. She has tried naproxen, Flexeril without any relief. No other complaints or concerns at this time. MD complaint: neck pain Onset (ago): day(s) Quality: aching Relieving factors: none Exacerbating factors: none Associated symptoms: none Treatments prior to arrival: naproxen Related Data Previous Rx's Medication Instructions Recorded cyclobenzaprine 10 mg tablet 10 mg PO TID PRN pain #14 tabs 06/06/22 ibuprofen 400 mg tablet 400 mg PO Q6H PRN pain #20 tabs 06/06/22 cyclobenzaprine 10 mg tablet 10 mg PO Q8H #20 tabs 10/30/22 lorazepam 1 mg tablet (Ativan) 1 mg PO BEDTIME PRN sleep #14 tabs 10/30/22 tramadol 50 mg tablet 50 mg PO Q6H PRN pain #20 tabs 10/30/22 methocarbamol 750 mg tablet 750 mg PO Q6H #10 tabs 04/27/23 prednisone 20 mg tablet 40 mg (2 x 20 mg) PO DAILY 4 days 04/27/23 #8 tabs Allergies Allergy/AdvReac Type Severity Reaction Status Date / Time Penicillins [PCN] AdvReac Anaphylaxis Verified 04/27/23 08:52 Review of Systems Review of Systems: Yes all other systems are reviewed and are negative Constitutional: Constitutional: Reports as per HPI [facility] Past Medical History Attestation statement: The following information was validated with the patient. Social History Social History Advance Directives: No Physical Exam Vital Signs: Vital Signs: Last Vital Signs Temp 97.4 F 04/27/23 08:40 Pulse 58 04/27/23 11:27 Resp 16 04/27/23 11:27 BP 143/89 H 04/27/23 11:27 Pulse Ox 99 04/27/23 11:27 O2 Del Method Room Air 04/27/23 11:27 BMI result Body Mass Index 33.5 Const: General: cooperative, comfortable and no acute distress Orientation/consciousness: patient oriented x3 Limitations: no limitations HEENT: Head: Yes normal to inspection, Yes normocephalic and Yes atraumatic Ears: hearing grossly normal bilaterally General nose exam: Normal external nose present Face and sinus: Yes normal facial exam Mouth: Normal oral and palatal mucosa present, oropharynx normal and moist mucous membranes Throat: Yes posterior oropharynx normal Eyes: General: appearance normal, both eyes and all related structures Eyelids: Yes eyelids normal Conjunctivae: conjunctivae normal Sclerae: scl erae normal Pupils: Equal, round and reactive pupils present EOM: EOMs intact bilaterally Neck: Other: Neck with tenderness palpation along the trapezius muscles, no midline cervical spine tenderness. Able to touch chin to chest. Decreased range of motion moving laterally, able to extend neck 30?. Neck is soft and supple. No lymphadenopathy noted. Chest: Chest palpation & inspection: normal inspection of the chest Resp: Effort & Inspection: normal respiratory effort and able to speak in complete sentences Auscultation: clear to auscultation bilaterally, no crackles, no rales, no rhonchi and no wheezes Cardio: Rate: regular rate Rhythm: regular rhythm Heart sounds: S1 normal heart sound present and S2 normal heart sound present GI: Inspection: Yes normal to inspection Skin: General skin exam: no rashes or lesions noted Trauma: no lacerations or abrasions Wounds: no wounds Neuro: Other: Negative Kernig's sign, negative brudinski's sign General: patient oriented x3, moves all extremities and CN's II-XI intact bilaterally Cranial nerves: Yes CN's II-XII intact bilaterally, Yes Equal, round and reactive pupils present and Yes Midline tongue present Cognition (Neuro): normal cognition Gait exam (Neuro): Normal gait present Motor exam (neuro): 5/5 motor strength present throughout and Pronator motor function not present Extrem: General: Yes normal to inspection Right upper extremity: normal to inspection Left upper extremity: normal to inspection Right lower extremity: normal to inspection Left lower extremity: normal to inspection Medications Administered Discontinued Medications Generic Name Dose Route Start Last Admin Trade Name [place] PRN Reason Stop Dose Admin Diazepam 2 mg 04/27/23 12:30 04/27/23 12:44 Diazepam 2 Mg Tablet PO 04/27/23 12:31 2 mg ONCE ONE Administration Prednisone 40 mg 04/27/23 12:30 04/27/23 12:44 Prednisone 20 Mg Tablet PO 04/27/23 12:31 40 mg ONCE ONE Administration Medical Decision Making Medical Decision Making [facility] Narrative: This is a 37-year-old female, with a history of muscle spasms, presenting to the emergency department complaints of neck spasm and tightness for the last 2 days. On arrival, patient is nontoxic appearing, vital signs within normal limits. Patient with no meningeal signs. And patient is neurologically intact. Patient has tenderness to palpation along the bilateral trapezius muscles, no cervical midline spine tenderness. Able to touch chin to chest. Patient has been afebrile, and is otherwise asymptomatic, no dizziness, lightheadedness, headaches. Patient medicated with Valium and prednisone in the department. Patient requesting to be discharged home prior to being re-evaluated after receiving these medications as she does not have a ride. Discussed the risks and benefits of leaving prior to her re-evaluation after receiving these medications, patient adamantly refuses to stay, patient discharged with strict return precautions. Patient understands agrees with plan. Patient stable for discharge. Differential Diagnosis Differential Diagnoses: The differential diagnosis associated with the presentation includes Spasmodic torticollis, cervical strain, spasm, meningitis-unlikely Discharge Plan Discharge Clinical Impression: Torticollis Patient Disposition: Home, Self-Care Instructions: Neck Pain (ED) Additional Instructions: We gave you a strong muscle relaxant in the emergency room. We also gave you prednisone. Please take the prednisone prescribed to tomorrow. I also gave you a different muscle relaxing, please take only as needed. Please be aware that this can cause drowsiness. Do not mix with your current prescribed Flexeril. This should help with your symptoms. You do not 1 await to see if you had symptomatic improvement due to difficulty with transportation. If you continue to have your symptoms or symptoms worsen, including but not limited to fevers, chills, headaches, dizziness, lightheadedness, please return for re-evaluation. Le dimos un relajante muscular wendi en la job de emergencias. Tambi?n le dimos prednisona. Por favor tome la prednisona recetada para ma?rd. Tambi?n te di un relajante muscular diferente, t?caroline solo seg?n sea necesario. Tenga en cuenta que esto puede provocar somnolencia. No lo mezcle con el Flexeril que le recetan actualmente. [place] deber?a ayudar con brandt s?ntomas. No debe esperar a dagoberto si tuvo woody mejor?a sintom?bienvenido debido a dificultades con el transporte. Si brandt s?ntomas contin?an o empeoran, incluidos, entre otros, fiebre, escalofr?os, ila de shelly, mareos, aturdimiento, regrese para woody nueva evaluaci?n. Prescriptions: New prednisone 20 mg tablet 40 mg PO DAILY 4 Days Qty: 8 0RF methocarbamol 750 mg tablet 750 mg PO Q6H Qty: 10 0RF No Action cyclobenzaprine 10 mg tablet 10 mg PO TID PRN (Reason: pain) Qty: 14 0RF ibuprofen 400 mg tablet 400 mg PO Q6H PRN (Reason: pain) Qty: 20 0RF cyclobenzaprine 10 mg tablet 10 mg PO Q8H Qty: 20 0RF tramadol 50 mg tablet 50 mg PO Q6H PRN (Reason: pain) Qty: 20 0RF lorazepam [Ativan] 1 mg tablet 1 mg PO BEDTIME PRN (Reason: sleep) Qty: 14 0RF Interventions: ED Discharge Assessment Last Done: 04/27/23 13:04 Discharge Date/Time: 04/27/23 13:05
[2023-04-27] MEDS: predniSONE 20 MG TABLET 40 MG PO (12:44)
[2023-04-27] MEDS: diazePAM 2 MG TABLET PO (12:44)
== END 2023-04-27 13:05 | disposition home or self-care (01) ==
PROVIDERS: Emergency Provider Emergency Medicine Emergency Medical Services
DX: M43.6 Torticollis (principal); M54.2 Cervicalgia; M62.830 Muscle spasm of back; Z79.899 Other long term (current) drug therapy
CPT/HCPCS: 99283

== ENCOUNTER 2023-04-30 15:43 | Emergency (ER) | payer MEDICAID, SELFPAY ==
[2023-04-30 16:26] VITALS: BP 150/101; PULSE 84; RESP 18; TEMP 37.1; O2SAT 98; BMI 32.8
--- NOTE | 2023-04-30 17:19 | ED_ITS ---
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 Patient states that she was seen here 2 days ago for the same pain, given muscle relaxers, and is still having the pain. Patient states that she can feel the spasm in her left shoulder and neck. Patient denies any dizziness, lightheadedness, abdominal pain, nausea, vomiting, fever, chills, blurry vision, double vision, loss of vision, chest pain, difficulty breathing, shortness of breath, back pain, night sweats, pain with urination, increased urinary frequency, increased urinary urgency, blood in her urine or stool, syncope or a near syncopal episode, recent trauma or falls, bowel incontinence, bladder incontinence, bowel retention, bladder retention, or any other complaints at this time. Onset (ago): day(s) (3) Location: neck, left and upper extremity Severity: mild Severity scale (1-10): 3 Quality: aching and dull Pain Consistency: constant Relieving factors: none Exacerbating factors: none Associated symptoms: denies other symptoms Treatments prior to arrival: other (muscle relaxers and steroids) Related Data Previous Rx's Medication Instructions Recorded cyclobenzaprine 10 mg tablet 10 mg PO TID PRN pain #14 tabs 06/06/22 ibuprofen 400 mg tablet 400 mg PO Q6H PRN pain #20 tabs 06/06/22 cyclobenzaprine 10 mg tablet 10 mg PO Q8H #20 tabs 10/30/22 lorazepam 1 mg tablet (Ativan) 1 mg PO BEDTIME PRN sleep #14 tabs 10/30/22 tramadol 50 mg tablet 50 mg PO Q6H PRN pain #20 tabs 10/30/22 methocarbamol 750 mg tablet 750 mg PO Q6H #10 tabs 04/27/23 prednisone 20 mg tablet 40 mg (2 x 20 mg) PO DAILY 4 days 04/27/23 #8 tabs lorazepam 1 mg tablet (Ativan) 1 mg PO BEDTIME PRN muscle spasm 04/30/23 #3 tabs Allergies Allergy/AdvReac Type Severity Reaction Status Date / Time Penicillins [PCN] AdvReac Anaphylaxis Verified 04/30/23 16:26 Review of Systems Constitutional: Constitutional: Reports no additional constitutional complaints, Denies chills, Denies fever(s) and Denies night sweats Eyes: Eyes: Reports no additional eye complaints, Denies blurry vision, Denies change in vision, Denies diplopia, Denies eye discharge, Denies loss of vision and Denies eye pain ENT: Denies dizziness and Reports neck pain Cardiovascular: Cardiovascular: Reports no additional cardiovascular complaints, Denies chest pain, Denies lightheadedness, Denies Loss of Consciousness and Denies dyspnea Respiratory: Respiratory: Reports no additional respiratory complaints and Denies dyspnea Gastrointestinal: Gastrointestinal: Reports no additional gastrointestinal complaints, Denies abdominal pain, Denies melena, Denies hematochezia, Denies change in bowel habits and Denies change in stool character Genitourinary: Genitourinary: Denies hematuria, Denies urinary frequency, Denies dysuria, Denies urinary incontinence, Denies urinary hesitancy and Denies urinary urgency Musculoskeletal: Musculoskeletal: Reports no additional musculoskeletal complaints, Reports neck pain, Denies numbness and Denies tingling Comments: left shoulder pain Neurologic: Denies dizziness, Denies loss of vision, Denies numbness and Denies tingling Psychiatric: Psychiatric: Reports no additional psychiatric complaints Endocrine: Endocrine: Reports no additional endocrine complaints Hematologic/Lymphatic: Hematologic/Lymphatic: Reports no additional hematologic/lymphatic complaints Allergic/Immunologic: Allergic/Immunologic: Reports no additional allergic/immunologic complaints PMFSH Past Medical History Attestation statement: The following information was validated with the patient. Source: old records reviewed and nursing notes reviewed Social History Social History Advance Directives: No Advance Directives Information Provided: No Physical Exam ED Vital Signs: Vital Signs - 24 hr 04/30/23 16:26 Temperature 98.7 F Pulse Rate 84 Respiratory Rate 18 Blood Pressure 150/101 H Pulse Oximetry 98 Oxygen Delivery Method Room Air BMI result Body Mass Index 32.8 Const General: cooperative, no acute distress, alert and awake Nutritional Appearance: well nourished Orientation/consciousness: patient oriented x3 Limitations: no limitations HENMT Head: Yes normal to inspection and Yes atraumatic Ears: hearing grossly normal bilaterally and external ears normal General nose exam: Normal external nose present, no nasal discharge noted and no epistaxis Face and sinus: Yes normal facial exam, No abrasion and No laceration Mouth: Normal oral and palatal mucosa present, no drooling and no muffled voice Eyes General: appearance normal, both eyes and all related structures Periorbital: periorbital findings normal Eyelids: Yes eyelids normal Conjunctivae: conjunctivae normal Pupils: Equal, round and reactive pupils present EOM: EOMs intact bilaterally Neck Neck: Yes normal visual inspection, Yes full ROM and Yes no lymphadenopathy Chest Chest palpation & inspection: normal inspection of the chest Resp Effort & Inspection: normal respiratory effort and able to speak in complete sentences GI Inspection: Yes normal to inspection Neuro General: patient oriented x3 and moves all extremities Cranial nerves: Yes Equal, round and reactive pupils present Cognition (Neuro): normal cognition Motor exam (neuro): 5/5 motor strength present throughout Sensory Exam: Normal double simultaneous stimulation for sensation Coordination: [id number] test normal Extrem General: Yes normal to inspection, Yes full ROM and Yes capillary refill normal Psych Appearance: grossly normal Mental Status: mental status grossly normal Affect: normal affect Attitude: cooperative Thought process: Normal thought process present Thought content: Normal thought content present Insight: Good insight present (Psych) Medications Administered Discontinued Medications Generic Name Dose Route Start Last Admin Trade Name Freq PRN Reason Stop Dose Admin Ketorolac Tromethamine 15 mg 04/30/23 17:26 04/30/23 17:54 Ketorolac Tromethamine 15 Mg/Ml Vial IM 04/30/23 17:27 15 mg ONCE ONE Administration Lorazepam 2 mg 04/30/23 17:26 04/30/23 17:53 Lorazepam 1 Mg Tablet PO 04/30/23 17:27 2 mg ONCE ONE Administration Medical Decision Making Medical Decision Making MDM Narrative: Patient is a 37 year old assigned female at with a history of cervical radiculopathy presenting to the emergency department today with left sided neck pain and left shoulder pain. Patient's physical exam was unremarkable. I explained my physical exam findings to the patient. I answered all questions asked by the patient. Patient received IM Toradol and PO Ativan which she stated helped her symptoms significantly. I stressed the importance of the patient taking her medication as prescribed. I stressed the importance of the patient following up with her primary care provider and a acute care clinical nurse specialist. I stressed the importance of the patient returning to the emergency department immediately if her symptoms were to worsen or if she were to develop any dizziness, shortness of breath, difficulty breathing, chest pain, blurry vision, loss of vision, nausea, vomiting, abdominal pain, fever, chills, back pain, or any other complaints. Patient verbalized agreement and understanding with this treatment plan and discharge. Differential Diagnosis Differential Diagnoses: The differential diagnosis associated with the presentation includes Cervical radiculopathy Shoulder pain Neck pain Prescription Management I considered prescription management with: Pain Medication (patient prescribed pain medication) Discharge Plan Discharge Clinical Impression: Cervical radiculopathy Patient Disposition: Home, Self-Care Instructions: Cervical Radiculopathy (ED) Additional Instructions: Follow up with your primary care provider and a acute care clinical nurse specialist. Return to the emergency department immediately if your symptoms worsen or if you develop any dizziness, shortness of breath, difficulty breathing, chest pain, blurry vision, loss of vision, nausea, vomiting, abdominal pain, fever, chills, back pain, or any other complaints. Corey un seguimiento con cabezas proveedor de atenci?n primaria y un especialista en [place]. Regrese al departamento de emergencias inmediatamente si brandt s?ntomas empeoran o si presenta mareos, dificultad para respirar, dificultad para respirar, dolor en el pecho, visi?n borrosa, p?rdida de la visi?n, n?useas, v?mitos, dolor abdominal, fiebre, escalofr?os, dolor de espalda o cualquier otras quejas. Prescriptions: New lorazepam [Ativan] 1 mg tablet 1 mg PO BEDTIME PRN (Reason: muscle spasm) Qty: 3 0RF No Action cyclobenzaprine 10 mg tablet 10 mg PO TID PRN (Reason: pain) Qty: 14 0RF ibuprofen 400 mg tablet 400 mg PO Q6H PRN (Reason: pain) Qty: 20 0RF cyclobenzaprine 10 mg tablet 10 mg PO Q8H Qty: 20 0RF tramadol 50 mg tablet 50 mg PO Q6H PRN (Reason: pain) Qty: 20 0RF lorazepam [Ativan] 1 mg tablet 1 mg PO BEDTIME PRN (Reason: sleep) Qty: 14 0RF prednisone 20 mg tablet 40 mg PO DAILY 4 Days Qty: 8 0RF methocarbamol 750 mg tablet 750 mg PO Q6H Qty: 10 0RF Referrals: [facility] Family Medicine [Provider Group] (Call to establish and follow up with a primary care provider. If you already have a primary care provider, please follow up with them. Llame para establecer y realizar un seguimiento con un proveedor de atenci?n primaria. Si ya tiene un proveedor de atenci?n primaria, corey un seguimiento con ?l.) [facility] Primary Care, [place] [Provider Group] (Call to establish and follow up with a primary care provider. If you already have a primary care provider, please follow up with them. Llame para establecer y realizar un seguimiento con un proveedor de atenci?n primaria. Si ya tiene un proveedor de atenci?n primaria, corey un seguimiento con ?l.) [facility] [Provider Group] (Call to establish and follow up with a primary care provider. If you already have a primary care provider, please follow up with them. Llame para establecer y realizar un seguimiento con un proveedor de atenci?n primaria. Si ya tiene un proveedor de atenci?n primaria, corey un seguimiento con ?l.) [facility] [Provider Group] (Call to establish and follow up with a acute care clinical nurse specialist. Llame para establecer y hacer un seguimiento con woody especialista en [place] v ertebral.) Stand Alone Forms: Work/School Release Print Language: Belarusian
[2023-04-30] MEDS: LORazepam 1 MG TABLET 2 MG PO (17:53)
[2023-04-30] MEDS: Ketorolac Tromethamine 15 MG/ML VIAL IM (17:54)
== END 2023-04-30 19:04 | disposition home or self-care (01) ==
PROVIDERS: Emergency Provider Emergency Medicine
DX: M54.12 Radiculopathy, cervical region (principal); M54.2 Cervicalgia; Z79.899 Other long term (current) drug therapy
CPT/HCPCS: 96372; 99283; 99284; J1885

== ENCOUNTER 2025-02-02 23:30 | Emergency (ER) | payer MEDICAID, SELFPAY ==
[2025-02-02 23:40] VITALS: BP 178/100; PULSE 59; RESP 20; TEMP 36.7; O2SAT 100; BMI 30.6
--- OUTSIDE RECORDS SUMMARY | 2025-02-02 23:53 | XMS_ITS | Clinical Summary ---
Author Organization [facility] ity Address [address] [place] [address] Care Team Providers Care Accounts Administrator Name Role Phone Unavailable Primary Care Provider Unavailabl e Social History Tobacco Use Types Packs/Day Years Used Date Smoking Tobacco: Never Assessed Comments Unknown Sex and Gender Information Value Date Recorded Sex Assigned at Not on file Legal Sex Female 7:58 PM EST Gender Identity Not on file Sexual Orientation Not on file Plan of Treatment Health Maintenance Due Date Last Done Comments Breast Cancer Screening 1985 DTaP,Tdap,and Td Vaccines (1 - Tdap) 08/05/2002 Hepatitis B Vaccines (1 of 3 - 19+ 3-dose series) 08/05/2002 Cervical Cancer Screening: P ap Smear 08/05/2004 HIV Screening 04/25/2022 Hepatitis C Screening 04/25/2022 Social Influencers of Health Screening 04/25/2022 Depression Screening 05/24/2024 COVID-19 Vaccine (2023-2 5 season) 2025 Influenza Vaccine (#1) 2025 HIB Vaccines Aged Out No longer eligi ble based on patient's age to complete this topic HPV Vaccines Aged Out No longer eligi ble based on patient's age to complete this topic Hepatitis A Vaccines Aged Out No long er eligible based on patient's age to complete this topic IPV Vaccines Aged Out No longer eligi ble based on patient's age to complete this topic MMR Vaccines Aged Out No longer eligi ble based on patient's age to complete this topic Meningococcal ACWY Vaccine Aged Out N o longer eligible based on patient's age to complete this topic Meningococcal B Vaccine Aged Out No l onger eligible based on patient's age to complete this topic Pneumococcal Vaccine: Pediat rics (0 to 5 Years) and At-Risk Patients (6 to 49 Years) Aged Out No longer eligible b ased on patient's age to complete this topic RSV Immunization Patients Un enrique 20 months Aged Out No longer eligible b ased on patient's age to complete this topic Varicella Vaccines Aged Out No longer eligible based on patient's age to complete this topic
--- OUTSIDE RECORDS SUMMARY | 2025-02-02 23:53 | XMS_ITS | Clinical Summary ---
Author Organization [facility] Address [address] [place] [address] Care Team Providers Care Printing Estimator Name Role Phone Kaleb Mustafa STATION CAPTAIN Primary Care Provider [phone] Source Comments PLEASE NOTE, if this patient is a minor, it may be UNLAWFUL to discuss sensitive information that is contained in these records (such as FAMILY PLANNING, MENTAL HEALTH or SUBSTANCE ABUSE) with the minor patient's parent or other person without the patient's specific authorization.[facility] Allergies Active Allergy Reactions Criticality Noted Date Comments Penicillins 03/06/2021 Medications fluticasone propionate (FLONASE) 50 mcg/actuation nasal spray Place 2 Sprays in both nostrils once daily 16 g 1 2 Active cetirizine (ZYRTEC) 10 mg tabletIndications :Allergic rhinitis, unspecified seasonality, unspecified trigger Take 1 Tablet by mouth once daily 30 Tablet 1 2 Active diclofenac sodium (VOLTAREN) 1 % gelIndications:Ne ck pain Apply 2 g topically 2 (two) times daily as needed for pain 100 g 2 3 Active ciclopirox (PENLAC) 8 % solutionIndicatio ns:Onychomycosis Apply topically nightly at bedtime 6.6 mL 1 3 Active DULoxetine (CYMBALTA) [address] capsuleIndication s:Anxiety with depression,Neck pain,Fibromyalgia Take 1 Capsule by mouth once daily 30 Capsule 3 Active naproxen (NAPROSYN) 500 mg tabletIndications :Neck pain Take 1 Tablet by mouth 2 (two) times daily with a meal 60 Tablet 4 Active cyclobenzaprine (FLEXERIL) 10 mg tabletIndications :Neck pain Take 1 Tablet by mouth 3 (three) times daily as needed for muscle spasms 30 Tablet 4 Active lisinopriL 10 mg tabletIndications :Primary hypertension Take 1 Tablet by mouth once daily 30 Tablet 2 4 Active ferrous sulfate 325 mg (65 mg iron) tabletIndications :Iron deficiency anemia, unspecified iron deficiency anemia type Take 1 Tablet by mouth every other day 30 Tablet 2 4 Active norelgestromin-et hin.estradioL (ORTHO EVRA) 150-35 mcg/[address] 1 Patch onto the skin once a week 3 Patch 11 4 Active Active Problems Problem Noted Date Diagnosed Date History of bilateral tubal ligation 03/27/2022 Pelvic pain 10/08/2021 Menorrhagia with regular cycle 10/08/2021 Chronic mid back pain 06/18/2021 Neck pain 06/18/2021 Immunizations Immunization Administration Dates Next Due Flu, Preservative Free 03/06/2021 Social History Tobacco Use Types Packs/Day Years Used Date Smoking Tobacco: Never Smokeless Tobacco: Never Tobacco Cessation:Counseling Given: Not Answered Alcohol Use Standard Drinks/Week Comments Never 0 (1 standard drink = 0.6 oz pur e alcohol) Social Connections Answer Date Recorded Connectedness 1 10/26/2023 Financial Resource Strain Answer Date R ecorded Financial Resource Strain 1 2023 Stress Answer Date Recorded Stress 1 10/26/2023 Physical Activity Answer Date Recorded Physical Activity 0 01/03/2021 Food Insecurity Answer Date Recorded Food 1 10/26/2023 Transportation Needs Answer Date Record ed Transportation 1 10/26/2023 Housing Stability Answer Date Recorded Housing 1 10/26/2023 Safety and Environment Answer Date Tashi rded Safety 1 10/26/2023 Utilities Answer Date Recorded Utilities 1 10/26/2023 Employment Answer Date Recorded Employment 0 01/03/2021 Comments No Sex and Gender Information Value Date Recorded Sex Assigned at Female 01/13/2021 7:08 AM PDT Legal Sex Female 11:17 AM PDT Gender Identity Female 01/13/2021 7:08 AM PDT Sexual Orientation Straight 03/06/2021 7: 01 AM PDT Last Filed Vital Signs Vital Sign Reading Time Taken Comments Blood Pressure 131/90 02/11/2024 3:17 PM EDT Pulse 72 02/11/2024 3:17 PM EDT Temperature 36.1 C (97 F) 10/26/2023 8:50 AM EDT Respiratory Rate 16 10/26/2023 8:50 AM EDT Oxygen Saturation 96% 10/26/2023 8:50 AM EDT Inhaled Oxygen Concentration - - Weight 87.5 kg (193 lb) 10/26/2023 8:50 AM EDT Height 162.6 cm (5' 4 ) 10/26/2023 8:50 AM EDT Body Mass Index 33.13 10/26/2023 8:50 AM EDT Plan of Treatment Health Maintenance Due Date Last Done Comments Anxiety Screening 1983 HPV Screening 1983 Tobacco Screening 1983 Imm-DTaP/Tdap/Td (1 - Tdap) 08/05/2002 Imm-Hepatitis B (1 of 3 - 19 + 3-dose series) 08/05/2002 Breast Cancer Screening (Mammogram) 2023 Alcohol and Drug Screen 05/24/2024 10/26/19 24, 08/26/2022, 11/06/2021, Additional history exists Depression Annual Screen 05/24/2024 10/26/2023 Annual Wellness (Adult): Indicated (All Coverage) 10/25/2024 10/26/2023, 08/26/2022 Relationship Safety Screening/Counseling 10/25/2024 10/26/2023, 08/26/2022, 03/06/2021 [id number] ( season) 2025 Imm-Influenza (#1) 2025 03/06/2021 Hypertension Screening (#1) 02/10/2025 Dental BW 02/12/2025 02/11/2024 Dental Examination 02/12/2025 02/11/2024 Dental Perio Charting 02/12/2025 02/11/2024 Dental Prophy 02/12/2025 02/11/2024 Pap Smear 04/21/2025 04/21/2022 Diabetes Screening 10/25/2026 10/26/2023, 1 06/21/2021, 03/06/2021, Additional history exists Cervical Cancer Screening 04/21/2027 Pap + HPV 04/21/2027 04/21/2022 Lipid Screening 10/25/2028 10/26/2023, 03/25, 03/06/2021 Dental FMX/Pano 02/12/2029 02/11/2024 Hepatitis C Screening Completed 03/06/2021 HIV Screening Completed 04/21/2022, 03/06/2021 Cervical Ablation/Cold-Knife Conization Discontinued Cervical Cryotherapy Discontinued Colposcopy Discontinued Endometrial Biopsy Discontinued Excision/Leep Discontinued HPV Genotyping Discontinued Vaginal Pap Discontinued Vulvoscopy Discontinued Procedures Procedure Name Priority Date/Time Associated Diagnosis Comments INTRAORAL - COMP SERIES OF RADIOGRAPHIC IMAGES Routine 02/11/2024 3:00 PM EDT 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 Caries PROPHYLAXIS - ADULT Routine 02/11/2024 3 :00 PM EDT Caries 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 COMP ORAL EVALUATION - NEW/ESTABLISHED PATIENT Routine 02/11/2024 3:00 PM EDT Caries 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 COMPREHENSIVE METABOLIC PANEL Routine 10/26/2023 9:22 AM EDT Annual physical exam Screening due LIPID PANEL Routine 10/26/2023 9:22 AM EDT Annual physical exam Screening due HIV 1/2 AG & AB W/RFLX (4TH GEN) Routine 04/21/2022 2:53 PM EST Well woman exam with routine gynecological exam THIN PREP IMAGE PAP + HPV RNA E6/E7 W/RFLX HPV 16, 18/45 Routine 04/21/2022 2:46 PM EST Well woman exam with routine gynecological exam HEPATITIS C AB W/RFLX HCV RNA, QT, RT PCR Routine 03/06/2021 11:04 AM EDT Routine lab draw from Last 3 Months or Most Recently Relevant to Health Maintenance Results * LIPID PANEL (10/26/2023 9:22 AM EDT) CHOLESTEROL, TOTAL 122 <200 mg/dL [facility] HDL CHOLESTEROL 50 > OR = 50 mg/dL [facility] TRIGLYCERIDES 76 <150 mg/dL [facility] LDL-CHOLESTEROL 56 99 mg/dL (calc) [facility] Comment: Reference range: <100 Desirable range <100 mg/dL for primary prevention; <70 mg/dL for patients with CHD or diabetic patients with > or = 2 CHD risk factors. LDL-C is now calculated using the Marcelo calculation, which is a validated novel method providing better accuracy than the Friedewald equation in the estimation of LDL-C. Jose SS et al. THALIA. 2013;310(64): 7404-6601 (http://education.SeatID/faq/YLF925) CHOL/HDLC RATIO 2.4 <5.0 (calc) [facility] NON-HDL CHOLESTEROL 72 <130 mg/dL (calc) [facility] Comment: For patients with diabetes plus 1 major ASCVD risk factor, treating to a non-HDL-C goal of <100 mg/dL (LDL-C of <70 mg/dL) is considered a therapeutic option. Blood Blood / Unknown 10/26/2023 9:22 AM EDT 10/26/2023 9:23 AM EDT Lina Terry PA-C LAB - BLOOD DRAW Final Resu lt [facility] [address] [place] [phone], [employer] [address] [place] [phone] * COMPREHENSIVE METABOLIC PANEL (10/26/2023 9:22 AM EDT) [facility] GLUCOSE 90 65 - 99 mg/dL [facility] Comment: Fasting reference interval UREA NITROGEN (BUN) 9 7 - 25 mg/dL [facility] CREATININE (blood) 0.76 0.50 - 0.99 mg/dL [facility] EGFR 102 > OR = 60 mL/min/1. 73m2 [employer] [employer] BUN/CREATININE RATIO SEE NOTE: [facility] Comment: Not Reported: BUN and Creatinine are within reference range. SODIUM 138 135 - 146 mmol/L [facility] POTASSIUM 4.2 3.5 - 5.3 mmol/L [facility] CHLORIDE 105 98 - 110 mmol/L [employer] [employer] CARBON DIOXIDE 25 20 - 32 mmol/L [facility] CALCIUM 9.0 8.6 - 10.2 mg/dL [facility] PROTEIN, TOTAL 6.6 6.1 - 8.1 g/dL [facility] ALBUMIN 4.3 3.6 - 5.1 g/dL [facility] GLOBULIN 2.3 1.9 - 3.7 g/dL (calc) [facility] ALBUMIN/GLOBULI N RATIO 1.9 1.0 - 2.5 (calc) [facility] BILIRUBIN, TOTAL 0.3 0.2 - 1.2 mg/dL [facility] ALKALINE PHOSPHATASE 58 31 - 125 U/L [facility] AST 11 10 - 30 U/L [facility] [facility] ALT 14 6 - 29 U/L [facility] [employer] Blood Blood / Unknown 10/26/2023 9 :22 AM EDT 10/26/2023 9:23 AM EDT us Lina Terry PA-C LAB - BLOOD DRAW Edited Res ult - Final [facility] [address] [address], [facility] [address] [phone] * HIV 1/2 AG & AB W/RFLX (4TH GEN) (04/21/2022 2:53 PM EST) HIV AG/AB, 4TH GEN NON-REAC TIVE NON-REAC TIVE [facility] Comment: HIV-1 antigen and HIV-1/HIV-2 antibodies were not detected. There is no laboratory evidence of HIV infection. PLEASE NOTE: This information has been disclosed to you from records whose confidentiality may be protected by state law. If your state requires such protection, then the state law prohibits you from making any further disclosure of the information without the specific written consent of the person to whom it pertains, or as otherwise permitted by law. A general authorization for the release of medical or other information is NOT sufficient for this purpose. For additional information please refer to http://education.PICS Auditing/faq/UNP031 (This link is being provided for informational/ educational purposes only.) The performance of this assay has not been clinically validated in patients less than 2 years old. Blood Blood / Unknown 04/21/2022 2 :53 PM EST 04/21/2022 2:53 PM EST Lora Sparrow [facility] LAB - BLOOD DRAW Final Resu lt [employer] [address] [address], [employer] [address] [address] * THIN PREP IMAGE PAP + HPV RNA E6/E7 W/RFLX HPV 16, 18/45 (04/21/2022 2:46 PM EST) CLINICAL INFORMATION See Note [facility] Comment:Routine exam LMP See Note [facility] Comment:[id number] PREV. PAP See Note [facility] Comment:NONE GIVEN PREV. BX See Note [facility] Comment:NONE GIVEN SOURCE See Note [facility] [employer] Comment:Cervix STATEMENT OF ADEQUACY See Note [facility] [employer] Comment: Satisfactory for evaluation. Endocervical/transformation zone component absent. INTERPRETATION/RESU LT See Note [facility] [employer] Comment:Negative for intraep ithelial lesion or malignancy. COMMENT See Note [facility] Comment: This Pap test has been evaluated with computer assisted technology. JINGLE WRITER See Note [facility] Comment: SXA, CT(ASCP) CT screening location: [address] [address] COMMENT [employer] [employer] HPV MRNA E6/E7 Not Detected Not Detected [facility] Comment: Methodology: Internet Site Designer-Mediated Amplification This assay detects E6/E7 viral messenger RNA (mRNA) from 14 high-risk HPV types (16,18,31,33,35,39,45,51,52,56,58,59,66,68). Cervical sources are required for HPV testing. If a vaginal source from a patient who has had a total hysterectomy with removal of cervix was submitted, please contact the testing laboratory for alternative testing options. For additional information, please refer to http://education.PICS Auditing/faq/UTZ458n0 (This link if provided for information/ educational purposes only.) Swab Cervix uteri structure / Unknown 04/21/2022 2:46 PM EST 04/22/2022 5:40 AM EST Narrative [facility] - 04/23/2022 11:25 AM EST EXPLANATORY NOTE: The Pap is a screening test for cervical cancer. It is not a diagnostic test and is subject to false negative and false positive results. It is most reliable when a satisfactory sample, regularly obtained, is submitted with relevant clinical findings and history, and when the Pap result is evaluated along with historic and current clinical information. [facility] - PATHOLOGY AND CYTOLOG Y AMBULATORY Final Result Performing Organization Address [facility]/ZIP Co de Phone Number [employer] [address] [place] [address], [facility] [address] [phone] * Hep C Antibody with Reflex HCV RNA (03/06/2021 11:04 AM EDT) HEPATITIS C ANTIBODY NON-REACT SEEMA NON-REACT SEEMA [facility] SIGNAL TO CUT-OFF 0.01 <1.00 [employer] [employer] Comment: HCV antibody was non-reactive. There is no laboratory evidence of HCV infection. In most cases, no further action is required. However, if recent HCV exposure is suspected, a test for HCV RNA (test code 48819) is suggested. For additional information please refer to http://education.PICS Auditing/faq/NTF46a5 (This link is being provided for informational/ educational purposes only.) Blood Blood / Unknown 03/06/2021 1 1:04 AM EDT 03/06/2021 11:05 AM EDT Rosalinda Cook PA-C LAB - BLOOD DRAW Edited Resu lt - Final Performing Organization Address [facility] Co de Phone Number [employer] [address] [address], [employer] [address] [phone] from Last 3 Months or Most Recently Relevant to Health Maintenance Insurance [place] D[place] [address] [employer] Care Teams Printing Estimator Relationship Specialty Start Date End Date Kaleb Mustafa FNP [address] [place] [address] PCP - General Family Medicine, [employer]IST 04/07/23
--- OUTSIDE RECORDS SUMMARY | 2025-02-02 23:53 | XMS_ITS | Clinical Summary ---
Author Organization [facility] Address [address] [place] [address] Care Team Providers Care Physical Security Engineer Name Role Phone Unavailable Primary Care Provider Unavailabl e Encounters Date Type Department Care Team Description 12/12/2024 Population Health Risk Score [facility] Care [facility] (C3) Department [address] [facility] [address] [place] [address] Provider, Population Health Generic from Last 3 Months Social History Tobacco Use Types Packs/Day Years Used Date Smoking Tobacco: Never Assessed Comments Unknown Sex and Gender Information Value Date Recorded Sex Assigned at Not on file Legal Sex Female 9:28 PM EDT Gender Identity Not on file Sexual Orientation Not on file Plan of Treatment Health Maintenance Due Date Last Done Comments Depression Screening 1983 SDOH Screening 1983 Disability Screening 1983 Alcohol/Substance Use Screening 1995 Tobacco Screening 1995 Family Planning (PISQ) 08/05/1998 HPV Vaccines (1 - 3-dose series) 08/05/1998 Hepatitis C Screening 08/05/2001 DTaP/Tdap/Td Vaccines (1 - Tdap) 08/05/2002 Hepatitis B Vaccines (1 of 3 - 19+ 3-dose series) 08/05/2002 Pap Smear 08/05/2004 Cervical Cancer Screening 08/05/2013 HPV/Cotest 08/05/2013 Mammogram 2023 COVID-19 Vaccine (1 - 2023-2 5 season) 2025 Influenza Vaccine (#1) 2025 03/06/2021 Zoster Vaccines (1 of 2) 08/05/2033 RSV Patients and Patients Aged 60 years or older (1 - 1-dose 75+ series) 08/05/2058 HIV Screening Completed 04/21/2022, 04/21/2022, 03/06/2021 HIB Vaccines Aged Out No longer eligi [...] patient's age to complete this topic Meningococcal Vaccine Aged Out No joy fuad eligible based on patient's age to complete this topic Pneumococcal Vaccine: Pediatrics (0 to 5 Years) and At-Risk Patients (6 to 49) Years Aged Out No longer eligible b ased on patient's age to complete this topic RSV under 20 months Aged Out No longe r eligible based on patient's age to complete this topic Rotavirus Vaccines Aged Out No longer eligible based on patient's age to complete this topic
--- NOTE | 2025-02-03 00:08 | ED.GENADULT ---
HPI - General Adult General Chief complaint: Dental/Oral Stated complaint: tooth pain Time Seen by Provider: 02/02/25 23:41 Source: patient Mode of arrival: ambulatory Limitations: no limitations History of Present Illness ED Provider: Dr. Calderón HPI narrative: This is a 39-year-old female presented hospital today for left lower molar teeth pain. Patient stated that she saw the dentist last week. She was noted to have damage nerve and they recommended root canal. Unfortunately she is waiting for insurance to process her procedure at this time may take up to a week. She stated this pain has been worsening. She has been taking Advil without any relief. Therefore patient presents to the ER for further evaluation and pain relief. Related Data Previous Rx's ?Medication ?Instructions ?Recorded cyclobenzaprine 10 mg tablet 10 mg PO TID PRN pain #14 tabs 06/06/22 ibuprofen 400 mg tablet 400 mg PO Q6H PRN pain #20 tabs 06/06/22 cyclobenzaprine 10 mg tablet 10 mg PO Q8H #20 tabs 10/30/22 lorazepam 1 mg tablet (Ativan) 1 mg PO BEDTIME PRN sleep #14 tabs 10/30/22 tramadol 50 mg tablet 50 mg PO Q6H PRN pain #20 tabs 10/30/22 methocarbamol 750 mg tablet 750 mg PO Q6H #10 tabs 04/27/23 prednisone 20 mg tablet 40 mg (2 x 20 mg) PO DAILY 4 days 04/27/23 #8 tabs lorazepam 1 mg tablet (Ativan) 1 mg PO BEDTIME PRN muscle spasm 04/30/23 #3 tabs oxycodone 5 mg tablet 5 mg PO Q8H PRN pain #12 tabs 02/03/25 Allergies Allergy/AdvReac Type Severity Reaction Status Date / Time Penicillins (PCN) AdvReac Anaphylaxis Verified 02/02/25 23:41 Review of Systems Review of Systems: Pertinent review of systems as mentioned in HPI. All other system otherwise negative. PMFSH Past Medical History [facility] Narrative: None Social History Social History Advance Directives: No Advance Directives Information Provided: No Physical Exam ED Exam Exam: General: Pleasant, no distress, interacting appropriately Head: Normacephalic, atraumatic ENT: Patient's teeth is intact, patient does not have any signs of dental abscess, no sign of pus drainage on evaluation. There was tenderness over her left lower molar teeth Psychiatric: Appropriate mood and thoughts Vital Signs: Vital Signs - 24 hr 02/02/25 23:40 Temperature 98.0 F Pulse Rate 59 Respiratory Rate 20 Blood Pressure 178/100 H Pulse Oximetry 100 Oxygen Delivery Method Room Air BMI result Body Mass Index 30.6 Medications Administered Discontinued Medications Generic Name Dose Route Start Last Admin Trade Name Freq PRN Reason Stop Dose Admin Bupivacaine HCl 4 ml 02/03/25 00:05 02/03/25 00:34 Bupivacaine Mpf 0.25 % 10 Ml Vial INFILTRATI 02/03/25 00:06 Not Given ONCE ONE Procedures Nerve Block Nerve Block 1: Time out performed: Yes Local Anesthetic: bupivacaine 0.25% Amount of anesthesia used (mL): 3 Side: left Intraoral Nerve Block: inferior alveolar Procedure Successful: Yes Patient Tolerated Procedure: well Complications: none Medical Decision Making Medical Decision Making MDM Narrative: This is a 39-year-old female presented hospital today for a left lower molar teeth pain. Discussed with the patient via clinician oncology. We will plan to perform a inferior alveolar nerve block for anesthetic. We will plan to use bupivacaine for longer duration of effect. Discussed with the patient I will plan to discharge home with a course of oxycodone for her pain. Discuss her to avoid driving or heavy mentioned in the operating while on oxycodone. And follow up with her dentist. Patient agrees and understands this plan. Nerve block was performed with good effect. Differential Diagnosis Differential Diagnoses: The differential diagnosis associated with the presentation includes Dental abscess, dental nerve pain, fracture tooth Discharge Plan Discharge Clinical Impression: Toothache Patient Disposition: Home, Self-Care Instructions: Toothache (ED) Prescriptions: New oxycodone 5 mg tablet 5 mg PO Q8H PRN (Reason: pain) Qty: 12 0RF Rx Instructions: Partial Fill upon patient request. No Action cyclobenzaprine 10 mg tablet 10 mg PO TID PRN (Reason: pain) Qty: 14 0RF ibuprofen 400 mg tablet 400 mg PO Q6H PRN (Reason: pain) Qty: 20 0RF cyclobenzaprine 10 mg tablet 10 mg PO Q8H Qty: 20 0RF tramadol 50 mg tablet 50 mg PO Q6H PRN (Reason: pain) Qty: 20 0RF lorazepam [Ativan] 1 mg tablet 1 mg PO BEDTIME PRN (Reason: sleep) Qty: 14 0RF prednisone 20 mg tablet 40 mg PO DAILY 4 Days Qty: 8 0RF methocarbamol 750 mg tablet 750 mg PO Q6H Qty: 10 0RF lorazepam [Ativan] 1 mg tablet 1 mg PO BEDTIME PRN (Reason: muscle spasm) Qty: 3 0RF Print Language: Mongolian
[2025-02-03 01:30] VITALS: BP 151/80; PULSE 59; RESP 20; TEMP 36.7; O2SAT 99
== END 2025-02-03 01:31 | disposition home or self-care (01) ==
PROVIDERS: Emergency Provider Student in an Organized Health Care Education/Training Program; PCP Dentist General Practice
DX: K08.89 Other specified disorders of teeth and supporting structures (principal)
CPT/HCPCS: 64400; 99282; 99284

== ENCOUNTER 2025-02-04 00:15 | Emergency (ER) | payer MEDICAID, SELFPAY ==
[2025-02-04 00:30] VITALS: BP 193/94; PULSE 67; RESP 20; TEMP 36.8; O2SAT 100; BMI 30.6
--- OUTSIDE RECORDS SUMMARY | 2025-02-04 00:40 | XMS_ITS | Clinical Summary ---
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 COMP ORAL EVALUATION - NEW/ESTABLISHED PATIENT Routine 02/11/2024 3:00 PM EDT Caries 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 LDL-C is now calculated using the Marcelo calculation, which is a validated novel method providing better accuracy than the Friedewald equation in the estimation of LDL-C. Jose SS et al. THALIA. 2013;310(76): 5768-8675 (http://education.[employer]/faq/GMO064) CHOL/HDLC RATIO 2.4 <5.0 (calc) [facility] NON-HDL CHOLESTEROL 72 <130 mg/dL (calc) [facility] Comment: For patients with diabetes plus 1 major ASCVD risk factor, treating to a non-HDL-C goal of <100 mg/dL (LDL-C of <70 mg/dL) is considered a therapeutic option. Blood Blood / Unknown 10/26/2023 9:22 AM EDT 10/26/2023 9:23 AM EDT Lina Terry PA-C LAB - BLOOD DRAW Final Resu lt [facility] [address] [place] [id number], [facility] [address] [place] [id number] * COMPREHENSIVE METABOLIC PANEL (10/26/2023 9:22 AM EDT) [facility] GLUCOSE 90 65 - 99 mg/dL [facility] Comment: Fasting reference interval UREA NITROGEN (BUN) 9 7 - 25 mg/dL [facility] CREATININE (blood) 0.76 0.50 - 0.99 mg/dL [facility] EGFR 102 > OR = 60 mL/min/1. 73m2 [facility] BUN/CREATININE RATIO SEE NOTE: [facility] Comment: Not Reported: BUN and Creatinine are within reference range. SODIUM 138 135 - 146 mmol/L [facility] POTASSIUM 4.2 3.5 - 5.3 mmol/L [facility] CHLORIDE 105 98 - 110 mmol/L [facility] CARBON DIOXIDE 25 20 - 32 mmol/L [facility] CALCIUM 9.0 8.6 - 10.2 mg/dL [facility] PROTEIN, TOTAL 6.6 6.1 - 8.1 g/dL [facility] ALBUMIN 4.3 3.6 - 5.1 g/dL [facility] GLOBULIN 2.3 1.9 - 3.7 g/dL (calc) [facility] ALBUMIN/GLOBULI N RATIO 1.9 1.0 - 2.5 (calc) [facility] BILIRUBIN, TOTAL 0.3 0.2 - 1.2 mg/dL [facility] ALKALINE PHOSPHATASE 58 31 - 125 U/L [facility] AST 11 10 - 30 U/L [facility] ALT 14 6 - 29 U/L [facility] Blood Blood / Unknown 10/26/2023 9 :22 AM EDT 10/26/2023 9:23 AM EDT us Lina Terry PA-C LAB - BLOOD DRAW Edited Res ult - Final [facility] [address] [address], [facility] [address] [address] * HIV 1/2 AG & AB W/RFLX (4TH GEN) (04/21/2022 2:53 PM EST) HIV AG/AB, 4TH GEN NON-REAC TIVE NON-REAC TIVE [facility] Comment: HIV-1 antigen and HIV-1/HIV-2 antibodies [...] purpose. For additional information please refer to http://education.[employer]/faq/UHT543 (This link is being provided for informational/ educational purposes only.) The performance of this assay has not been clinically validated in patients less than 2 years old. Blood Blood / Unknown 04/21/2022 2 :53 PM EST 04/21/2022 2:53 PM EST Lora Sparrow [facility] LAB - BLOOD DRAW Final Resu lt [facility] [address] [address], [facility] [address] [address] * THIN PREP IMAGE PAP + HPV RNA E6/E7 W/RFLX HPV 16, 18/45 (04/21/2022 2:46 PM EST) CLINICAL INFORMATION See Note [facility] Comment:Routine exam LMP See Note [facility] Comment:[id number] PREV. PAP See Note [facility] Comment:NONE GIVEN PREV. BX See Note [facility] Comment:NONE GIVEN SOURCE See Note [facility] Comment:Cervix STATEMENT OF ADEQUACY See Note [facility] Comment: Satisfactory for evaluation. Endocervical/transformation zone component absent. INTERPRETATION/RESU LT See Note [facility] Comment:Negative for intraep ithelial lesion or malignancy. COMMENT See Note [facility] Comment: This Pap test has been evaluated with computer assisted technology. MANAGER OF REVENUE See Note [facility] [employer] Comment: SXA, CT(ASCP) CT screening location: [address] [address] COMMENT [facility] HPV MRNA E6/E7 Not Detected Not Detected [facility] Comment: Methodology: Publication Director-Mediated Amplification This assay detects E6/E7 viral messenger RNA (mRNA) from 14 high-risk HPV types (16,18,31,33,35,39,45,51,52,56,58,59,66,68). Cervical sources are required for HPV testing. If a vaginal source from a patient who has had a total hysterectomy with removal of cervix was submitted, please contact the testing laboratory for alternative testing options. For additional information, please refer to http://education.[employer]/faq/NRO400w1 (This link if provided for information/ educational purposes only.) Swab Cervix uteri structure / Unknown 04/21/2022 2:46 PM EST 04/22/2022 5:40 AM EST Narrative [employer] [facility] - 04/23/2022 11:25 AM EST EXPLANATORY NOTE: [...] Y AMBULATORY Final Result Performing Organization Address [facility]/ZIP Co de Phone Number [facility] [address] [place] [address], [facility] [address] [phone] * Hep C Antibody with Reflex HCV RNA (03/06/2021 11:04 AM EDT) HEPATITIS C ANTIBODY NON-REACT SEEMA NON-REACT SEEMA [facility] SIGNAL TO CUT-OFF 0.01 <1.00 [facility] Comment: HCV antibody was non-reactive. There is no laboratory evidence of HCV infection. In most cases, no further action is required. However, if recent HCV exposure is suspected, a test for HCV RNA (test code 31013) is suggested. For additional information please refer to http://education.[employer]/faq/WHE04x3 (This link is being provided for informational/ educational purposes only.) Blood Blood / Unknown 03/06/2021 1 1:04 AM EDT 03/06/2021 11:05 AM EDT Rosalinda Cook PA-C LAB - BLOOD DRAW Edited Resu lt - Final Performing Organization Address [facility] Co de Phone Number [facility] [address] [address], [facility] [address] [address] from Last 3 Months or Most Recently Relevant to Health Maintenance Insurance [place] MED[place] [address] [employer] Care Teams Wire Mesh Knitter Relationship Specialty Start Date End Date Kaleb Mustafa FNP [address] [place] [address] PCP - General Family Medicine, CONFLICT RESOLUTION PROFESSIONAL 04/07/23
--- OUTSIDE RECORDS SUMMARY | 2025-02-04 00:40 | XMS_ITS | Clinical Summary ---
Author Organization [facility] ity Address [address] [place] [address] Care Team Providers Care Cutter In Name Role Phone Unavailable Primary Care Provider [...]
--- OUTSIDE RECORDS SUMMARY | 2025-02-04 00:40 | XMS_ITS | Clinical Summary ---
Author Organization [facility] Address [address] [facility] [address] [place] [address] Care Team Providers Care Desk Editor Name Role Phone Unavailable Primary Care Provider Unavailabl e Encounters Date Type Department Care Team Description 12/12/2024 Population Health Risk Score [facility] (C3) Department [address] [facility] [address] [place] [address] Provider, Population Health Generic from [...]
--- NOTE | 2025-02-04 00:57 | ED.DENTAL ---
HPI - Dental/Oral General Chief complaint: Dental/Oral Stated complaint: tooth and ear pain Time Seen by Provider: 02/04/25 00:43 History of Present Illness HPI Narrative: Patient is a 39-year-old female presents today with having left 1st molar pain. Patient has an appointment with a dentist for a root canal. Claims the nerve is damage. Was seen yesterday. Was given a dental block. She does not want want today. She claims the pain is not helping with oxycodone. No fever no chills. No chest pain or shortness of breath no systemic complaints no difficulty breathing no difficulty with voice. No difficulty with swallowing. Related Data Previous Rx's ?Medication ?Instructions ?Recorded cyclobenzaprine 10 mg tablet 10 mg PO TID PRN pain #14 tabs 06/06/22 ibuprofen 400 mg tablet 400 mg PO Q6H PRN pain #20 tabs 06/06/22 cyclobenzaprine 10 mg tablet 10 mg PO Q8H #20 tabs 10/30/22 lorazepam 1 mg tablet (Ativan) 1 mg PO BEDTIME PRN sleep #14 tabs 10/30/22 tramadol 50 mg tablet 50 mg PO Q6H PRN pain #20 tabs 10/30/22 methocarbamol 750 mg tablet 750 mg PO Q6H #10 tabs 04/27/23 prednisone 20 mg tablet 40 mg (2 x 20 mg) PO DAILY 4 days 04/27/23 #8 tabs lorazepam 1 mg tablet (Ativan) 1 mg PO BEDTIME PRN muscle spasm 04/30/23 #3 tabs oxycodone 5 mg tablet 5 mg PO Q8H PRN pain #12 tabs 02/03/25 clindamycin HCl 300 mg capsule 300 mg PO Q6H 5 days #20 caps 02/04/25 (Cleocin HCl) ibuprofen 400 mg tablet 400 mg PO Q6H PRN pain #20 tabs 02/04/25 Allergies Allergy/AdvReac Type Severity Reaction Status Date / Time Penicillins (PCN) AdvReac Anaphylaxis Verified 02/04/25 00:33 Review of Systems Review of Systems: Positive pain to the left lower 1st molar Yes all other systems are reviewed and are negative [facility] Past Medical History Attestation statement: The following information was validated with the patient. Social History Social History Advance Directives: No Physical Exam Exam: Exam: Appearance: Alert. Oriented X3. No acute distress. Eyes: Pupils equal, round and reactive to light. ENT: Pharynx normal. Examination of the dentition showed lower left 1st molar has no gross tenderness on palpation no gross fluctuance on palpation. Posterior pharynx is normal. TMs are intact bilaterally. Neck: Normal inspection. Neck supple. No lymph nodes noted. No crepitus CVS: Normal heart rate and rhythm. Pulses normal. Normal S1 and S2 Respiratory: No respiratory distress. Breath sounds normal. No Wheezing. No rales Abdomen: Soft and nontender. No rigidity. No distention. good BS x4 Skin: Skin warm and dry. Normal skin color. Normal skin turgor. Extremities: No lower extremity edema. Neurovascular intact to all extremities. No Lacerations. No Rash Neuro: Oriented X 3. No motor deficit. No sensory deficit. Moving all extermities. No slurred speech Vital Signs: Vital Signs: Last Vital Signs Temp 98.3 F 02/04/25 00:30 Pulse 67 02/04/25 00:30 Resp 20 02/04/25 00:30 BP 193/94 H 02/04/25 00:30 Pulse Ox 100 02/04/25 00:30 O2 Del Method Room Air 02/04/25 00:30 BMI result Body Mass Index 30.6 Medical Decision Making Medical Decision Making MDM Narrative: Patient has a dentist currently undergoing insurance issue will see her dentist on Wednesday. Complaining of pain localized to the area claims the oxycodone is not working. She still has oxycodone at home. She does not want a dental block. Will give a dose of Toradol. Discussed with patient the need for close follow-up. Will prescribe clindamycin as patient has allergies to penicillin. Currently in stable condition. Close follow-up with dentistry advise. Differential Diagnosis Differential Diagnoses: The differential diagnosis associated with the presentation includes Cavities, dental abscess, peritonsillar abscess Discharge Plan Discharge Clinical Impression: Dental caries Patient Disposition: Home, Self-Care Instructions: Toothache (ED) Prescriptions: New clindamycin HCl [Cleocin HCl] 300 mg capsule 300 mg PO Q6H 5 Days Qty: 20 0RF ibuprofen 400 mg tablet 400 mg PO Q6H PRN (Reason: pain) Qty: 20 0RF No Action cyclobenzaprine 10 mg tablet 10 mg PO TID PRN (Reason: pain) Qty: 14 0RF ibuprofen 400 mg tablet 400 mg PO Q6H PRN (Reason: pain) Qty: 20 0RF cyclobenzaprine 10 mg tablet 10 mg PO Q8H Qty: 20 0RF tramadol 50 mg tablet 50 mg PO Q6H PRN (Reason: pain) Qty: 20 0RF lorazepam [Ativan] 1 mg tablet 1 mg PO BEDTIME PRN (Reason: sleep) Qty: 14 0RF prednisone 20 mg tablet 40 mg PO DAILY 4 Days Qty: 8 0RF methocarbamol 750 mg tablet 750 mg PO Q6H Qty: 10 0RF lorazepam [Ativan] 1 mg tablet 1 mg PO BEDTIME PRN (Reason: muscle spasm) Qty: 3 0RF oxycodone 5 mg tablet 5 mg PO Q8H PRN (Reason: pain) Qty: 12 0RF Rx Instructions: Partial Fill upon patient request. Referrals: [place],[facility] [Primary Care Provider, Primary Care] Referral Note: Please follow-up with your dentist on Wednesday Print Language: Hungarian
[2025-02-04 02:09] VITALS: BP 193/94; PULSE 67; RESP 20; TEMP 36.8; O2SAT 100
== END 2025-02-04 02:10 | disposition home or self-care (01) ==
PROVIDERS: Emergency Provider Emergency Medicine Emergency Medical Services; PCP Dentist General Practice
DX: K02.9 Dental caries, unspecified (principal)
CPT/HCPCS: 96372; 99283; 99284; J1885